=== PATIENT | female | born 1950 | race Caucasian/White ===

== ENCOUNTER 2018-02-28 14:39 | Emergency (ER) | payer MEDICARE, MEDICAID ==
--- NOTE | 2018-02-28 14:57 | ER Report ---
History and Physical Time Seen By MD: 14:54 HPI/ROS CHIEF COMPLAINT: Problem with wounds on foot HISTORY OF PRESENT ILLNESS: This is a 67-year-old female who presents to the emergency department with her son for chronic wounds to her foot. Patient has been in [place] for the past 3 months, visiting from [place], has a video presentation operator that she sees routinely in [place]. She has been receiving home health 5 days week as well as wound care treatment at home 3 days week for a nonhealing wound on her right 4th and 5th toes. The patient was evaluated by the wound care personnel today, they noted some increased erythema and became concerned and s ubsequently sent her to the ER for further evaluation. Patient arrives very agitated, has made it very clear that she does not want to be in the emergency department however her son who is with her home health personnel also state that there's been an increased odor to the right foot. Patient has a long history of poor circulation, lymphedema, diabetes, club feet and chronic nonhealing wounds. Patient is ambulatory. Patient denies fevers or chills, no chest pain or shortness of breath, no nausea or vomiting. REVIEW OF SYSTEMS: Constitutional: No fever, no chills. Eyes: No discharge. ENT: No sore throat. Cardiovascular: No chest pain, no palpitations. Respiratory: No cough, no shortness of breath. Gastrointestinal: No abdominal pain, no vomiting. Genitourinary: No hematuria. Musculoskeletal: No back pain. Skin: As above. Neurological: No headache. Allergies: Coded Allergies: Penicillins (Verified Adverse Reaction, Unknown, HIVES, 02/28/18) Home Meds Active Scripts Doxycycline Hyclate (DOXYCYCLINE HYCLATE) 100 Mg Tablet, 100 MG PO BID for 10 Days, #20 TAB 0 Refills Prov:YELENA BARRETT Nila TRAINING CONSULTANT-BC 02/28/18 Reported Medications Diphenhydramine Hcl (BENADRYL) 25 Mg Capsule, 25 MG PO Q6-8H PRN for ITCHING, CAPSULE 02/28/18 Ammonium Lactate/Emu Oil (EMU-LAC HYDRATING CREAM) 120 Ml Cream.ml., 120 ML TP QDAY PRN for RASH 02/28/18 Docusate Sodium (COLACE) 100 Mg Capsule, 100 MG PO BID PRN for CONSTIPATION, CAPSULE 02/28/18 Cyanocobalamin (Vitamin B-12) (Vitamin B-12) 1,000 Mcg Capsule, Q30D 02/28/18 Cholecalciferol (Vitamin D3) (VITAMIN D3) 1,000 Unit Tablet, 5000 UNIT PO QDAY, TAB 02/28/18 Multivitamin With Minerals (MULTIPLE VITAMIN) 1 Each Tablet, 1 EACH PO QDAY, TAB 02/28/18 Ondansetron Hcl (ONDANSETRON HCL) 4 Mg Tablet, 4 MG PO PRN 02/28/18 Sumatriptan Succinate (SUMATRIPTAN SUCCINATE) 25 Mg Tablet, 25 MG PO PRN 02/28/18 Diclofenac Sodium 1% Gel (VOLTAREN 1% GEL) 100 Gm Gel..gram., TOP PRN 02/28/18 Triamcinolone Acetonide 0.1% Oint 15 Gm Tube (TRIAMCINOLONE ACETONIDE 0.1% 15 GM TUBE) 15 Gm Oint...g., TOP PRN 02/28/18 Miconazole Nitrate (MICRO-GUARD) 85 Gm Powder, TOP PRN 02/28/18 Fluticasone Prop 50 Mcg Ns (FLONASE 50 MCG NS) 16 Gm [place].susp, 2 SPR INH BID 02/28/18 Ferrous Sulfate (FEOSOL) 325 Mg Tablet, 325 MG PO QDAY 02/28/18 Escitalopram Oxalate (ESCITALOPRAM OXALATE) 10 Mg Tablet, 15 MG PO HS 02/28/18 Trazodone Hcl (TRAZODONE HCL) 50 Mg Tablet, 50 MG PO HS 02/28/18 Magnesium Oxide (MAG-OXIDE) 400 Mg Tablet, 400 MG PO QDAY 02/28/18 Topiramate (TOPIRAMATE) 200 Mg Tablet, 200 MG PO HS 02/28/18 Spironolactone (SPIRONOLACTONE) 50 Mg Tablet, 50 MG PO BID 02/28/18 Atenolol (ATENOLOL) 25 Mg Tablet, 25 MG PO HS 02/28/18 Famotidine (FAMOTIDINE) 20 Mg Tablet, 20 MG PO QDAY 02/28/18 Morphine Sulfate (MORPHINE SULFATE ER) 60 Mg Tablet.er, 75 PO BID for PAIN 02/28/18 Risperidone (RISPERIDONE) 0.5 Mg Tablet, 0.5 MG PO QDAY 02/28/18 Metformin Hcl (METFORMIN HCL) 500 Mg Tablet, 1 TAB PO BID, TAB 02/28/18 Furosemide (LASIX) 40 Mg Tablet, 1 TAB PO QDAY, TAB 02/28/18 Potassium Chloride (POTASSIUM CHLORIDE) 20 Meq Tab.er.prt, 20 MEQ PO QDAY 02/28/18 Levothyroxine Sodium (LEVOTHYROXINE SODIUM) 50 Mcg Tablet, 50 MCG PO QDAY, TAB 02/28/18 Levothyroxine Sodium (LEVOTHYROXINE SODIUM) 100 Mcg Tablet, 100 MCG PO QDAY, TAB 02/28/18 Oxycodone Hcl 10 Mg Tab (OXYCODONE HCL 10 MG TAB) 10 Mg Tablet, 10 MG PO Q6H PRN for PAIN, TAB 02/28/18 Past Medical/Surgical History The patient has a past medical and surgical history of migraines, has a pacemaker for low heart rate, A. fib, hypertension, gastric bypass, urinary frequency, arthritis, chronic back pain, chronic foot pain, depression, anxiety, facial and lip cancer, chemotherapy, diabetes, appendectomy, cholecystectomy, bilateral total knees, total right hip.. Reviewed Nurses Notes: Yes Constitutional Vital Sign - Last 24 Hours 02/28/18 02/28/18 02/28/18 02/28/18 14:51 14:54 15:09 15:30 Temp 98.1 Pulse 83 75 Resp 16 B/P (MAP) 132/81 (98) 132/81 127/75 (92) Pulse Ox 88 93 O2 Delivery Room Air Room Air 02/28/18 02/28/18 02/28/18 02/28/18 15:39 16:00 16:09 17:00 Pulse 74 80 B/P (MAP) 117/85 (96) 107/77 (87) Pulse Ox 88 92 O2 Delivery Room Air Room Air 02/28/18 02/28/18 17:14 17:30 Pulse 76 B/P (MAP) 104/74 (84) Pulse Ox 95 93 O2 Delivery Room Air Room Air Physical Exam General Appearance: The patient is alert, has no immediate need for airway protection and no signs of toxicity. Eyes: Pupils equal and round no pallor or injection. ENT, Mouth: Mucous membranes are dry. Respiratory: There are no retractions, lungs are clear to auscultation. Cardiovascular: Regular rate and rhythm, distant, no murmurs, clicks or rubs. Gastrointestinal: Abdomen is soft and non tender, no masses, bowel sounds normal. Neurological: Alert and oriented 4. Moving all extremities. Following all commands. No focal neuro deficits. Skin: Ulceration to the medial side of the right small toe, that is down to the bone. There is erythema and the beginning of cellulitis to the surrounding tissue. There is no apparent granulation tissue to the wound. No cellulitic appearing wounds to the left foot. Musculoskeletal: Neck is supple non tender. Extremities are nontender, nonswollen and have full range of motion. DIFFERENTIAL DIAGNOSIS: After history and physical exam differential diagnosis was considered for osteomyelitis, cellulitis, chronic wound, poor wound healing, and peripheral vascular disease. Medical Decision Making Data Points Result Diagram: 02/28/18 1649 Laboratory Hematology Test 02/28/18 16:49 Red Blood Count 4.54 M/uL (4.17-5.56) Mean Corpuscular Volume 90.3 fL (80.0-96.0) Mean Corpuscular Hemoglobin 30.8 pg (26.0-33.0) Mean Corpuscular Hemoglobin Concent 34.1 g/dL (32.0-36.0) Red Cell Distribution Width 14.3 % (11.5-14.5) Mean Platelet Volume 8.1 fL (7.2-11.1) Neutrophils (%) (Auto) 65.1 % (39.4-72.5) Lymphocytes (%) (Auto) 23.4 % (17.6-49.6) Monocytes (%) (Auto) 9.6 % (4.1-12.4) Eosinophils (%) (Auto) 1.2 % (0.4-6.7) Basophils (%) (Auto) 0.7 % (0.3-1.4) Nucleated RBC Relative Count (auto) 0.1 /100WBC Neutrophils # (Auto) 3.5 K/uL (2.0-7.4) Lymphocytes # (Auto) 1.3 K/uL (1.3-3.6) Monocytes # (Auto) 0.5 K/uL (0.3-1.0) Eosinophils # (Auto) 0.1 K/uL (0.0-0.5) Basophils # (Auto) 0.0 K/uL (0.0-0.1) Nucleated RBC Absolute Count (auto) 0.01 K/uL C-Reactive Protein < 0.5 mg/dl (<1.0) Chemistry Test 02/28/18 16:49 White Blood Count 5.4 k/uL (4.5-11.0) Red Blood Count 4.54 M/uL (4.17-5.56) Hemoglobin 14.0 g/dL (12.0-16.0) Hematocrit 41.0 % (34.0-47.0) Mean Corpuscular Volume 90.3 fL (80.0-96.0) Mean Corpuscular Hemoglobin 30.8 pg (26.0-33.0) Mean Corpuscular Hemoglobin Concent 34.1 g/dL (32.0-36.0) Red Cell Distribution Width 14.3 % (11.5-14.5) Platelet Count 200 K/uL (150-450) Mean Platelet Volume 8.1 fL (7.2-11.1) Neutrophils (%) (Auto) 65.1 % (39.4-72.5) Lymphocytes (%) (Auto) 23.4 % (17.6-49.6) Monocytes (%) (Auto) 9.6 % (4.1-12.4) Eosinophils (%) (Auto) 1.2 % (0.4-6.7) Basophils (%) (Auto) 0.7 % (0.3-1.4) Nucleated RBC Relative Count (auto) 0.1 /100WBC Neutrophils # (Auto) 3.5 K/uL (2.0-7.4) Lymphocytes # (Auto) 1.3 K/uL (1.3-3.6) Monocytes # (Auto) 0.5 K/uL (0.3-1.0) Eosinophils # (Auto) 0.1 K/uL (0.0-0.5) Basophils # (Auto) 0.0 K/uL (0.0-0.1) Nucleated RBC Absolute Count (auto) 0.01 K/uL C-Reactive Protein < 0.5 mg/dl (<1.0) EKG/Imaging Imaging EXAMINATION: Right foot radiographs 3 views HISTORY: Chronic wounds, evaluate for bony involvement COMPARISON: None. FINDINGS: Frontal, oblique and lateral views obtained. Bones: Osteopenia. Chronic second through fourth metatarsal fracture deformities. Equivocal chronic distal fifth metatarsal fracture deformity. No definitive osseous destruction. Evaluation of the distal aspects of the second through fifth digits is limited secondary to flexion of these toes. Joint spaces: Normal. Alignment: Normal. Soft tissues: Dorsal soft tissue swelling. Vascular calcifications. IMPRESSION: No definitive radiographic evidence of osteomyelitis. Consider MR if there is high clinical concern for osteomyelitis. Evaluation of the distal aspects of the second through fifth toes is limited by toe flexion. Dorsal soft tissue swelling. Osteopenia. Chronic second through fourth metatarsal fracture deformities. Report Dictated By: Antwon Barragan MD at 02/28/2018 3:39 PM Report E-Signed By: Antwon Barragan MD at 02/28/2018 3:43 PM [id number] ED Course/Re-evaluation ED Course The patient was admitted to a room. A history of were obtained. Differential diagnoses were considered. I did have wound care come down to evaluate the patient's wound on the right small toe, they felt the wound is down to bone and suggested following up with the general surgeon. I did speak with Dr. Lopez as noted below, she did alto only come down and evaluate the patient. A CBC and CRP were obtained, labs studies unremarkable. I also spoke with the patient's video presentation operator in [place] as noted below. The patient will be discharged from the emergency department tonight on doxycycline with instructions to keep her appointment with the wound care nurse this Monday, call the video presentation operator tomorrow and schedule a follow-up appointment as soon as possible. The patient's wounds were dressed this evening, her compression stockings and multiple layers of compression devices were reapplied. An x-ray of the foot did not suggest osteomyelitis at this time. The patient's and her son had no other questions or concerns at this time and were discharged home. The patient was also instructed to return to the ER for any other concerns, increased pain or worsening symptoms of cellulitis. 02/28/2018 4:00:49 pm I did speak with Dr. Lopez the surgeon safety and occupational health manager regarding the patient's case, she did come down and evaluate the patient's wound, her initial suggestion was to follow-up with podiatry, here locally if possible. Patient does have a video presentation operator insured and that she's been working with. She did not feel that the wound needed to be debris did or amputated at this time. 02/28/2018 4:22:47 pm I did speak with the patient's video presentation operator in [place], Dr. Leonardo, he is very familiar with the patient's past medical history, he said that he would be willing to see her in his office if she were to call and make a follow-up appointment within the next 1-2 weeks. I did discuss this with the patient. She and her son will try to make arrangements to follow-up with her video presentation operator in [place]. Decision to Disposition Date: Feb 28, 2018 Decision to Disposition Time: 17:12 Depart Departure Latest Vital Signs Vital Signs Date Time Temp Pulse Resp B/P (MAP) Pulse Ox O2 Delivery O2 Flow Rate FiO2 02/28/18 17:30 104/74 (84) 93 Room Air 02/28/18 17:14 76 02/28/18 14:54 98.1 16 Impression: Primary Impression: CELLULITIS OF RIGHT TOE Additional Impressions: Diabetes Chronic wound of extremity Condition: Improved Disposition: HOME OR SELF-CARE New Scripts Doxycycline Hyclate (DOXYCYCLINE HYCLATE) 100 Mg Tablet 100 MG PO BID for 10 Days, #20 TAB 0 Refills Prov: YELENA BARRETT-BC 02/28/18 Patient Instructions: Cellulitis (ED), Chronic Wound Care (ED) Additional Instructions: Please call your Window Glazier Helper, Dr. Leonardo, tomorrow to arrange follow up as soon as possible, preferably within one week. We have evaluated your wound today and it does appear that there is some bone exposed with some surrounding inflammation and the beginning of a skin infection. I am starting you on Doxycycline, please complete the antibiotics. Keep your home health wound care appointment monday. Drink plenty of water. Get plenty of rest. Continue taking your regular medications. Return to the ED for any other needs or worsening symptoms. Problem Qualifiers Additional Impressions: Diabetes Diabetes mellitus type: type 2 Diabetes mellitus exterminator helper insulin use: without exterminator helper use Diabetes mellitus complication status: with circulatory complication Diabetes mellitus complication detail: with other circulatory complications Qualified Codes: E11.59 - Type 2 diabetes mellitus with other circulatory complications YELENA BARRETT TRAINING CONSULTANT-BC Feb 28, 2018 14:57
--- NOTE | 2018-02-28 15:47 | RADIOLOGY IMAGING REPORT ---
FACILITY: [facility] PATIENT NAME: Makenzie Fox : 1950 MR: [id number] V: [id number] EXAM DATE: ORDERING PHYSICIAN: YELENA BARRETT TECHNOLOGIST: Location: [facility] [place] Patient: Makenzie Fox : 1950 Visit/Account:[id number] Date of Sevice: 02/28/2018 EXAMINATION: Right foot radiographs 3 views HISTORY: Chronic wounds, evaluate for bony involvement COMPARISON: None. FINDINGS: Frontal, oblique and lateral views obtained. Bones: Osteopenia. Chronic second through fourth metatarsal fracture deformities. Equivocal chroni c distal fifth metatarsal fracture deformity. No definitive osseous destruction. Evaluation of the distal aspects of the second through fifth digits is limited secondary to flexion of these toes. Joint spaces: Normal. Alignment: Normal. Soft tissues: Dorsal soft tissue swelling. Vascular calcifications. IMPRESSION: No definitive radiographic evidence of osteomyelitis. Consider MR if there is high clinical concern for osteomyelitis. Evaluation of the distal aspects of the second through fifth toes is limited by toe flexion. Dorsal soft tissue swelling. Osteopenia. Chronic second through fourth metatarsal fracture deformities. Report Dictated By: Antwon Barragan MD at 02/28/2018 3:39 PM Report E-Signed By: Antwon Barragan MD at 02/28/2018 3:43 PM [id number]
[2018-02-28] MEDS ORDERED: [UNRECOGNIZED DRUG - CODE] TOP (15:49)
[2018-02-28] MEDS ORDERED: OXYC10TA67 PO (15:49)
[2018-02-28] MEDS ORDERED: TRIA15OI20 TOP (15:49)
[2018-02-28] MEDS ORDERED: METF-411 PO (15:49)
[2018-02-28] MEDS ORDERED: DICL100G39 TOP (15:49)
[2018-02-28] MEDS ORDERED: FURO40TA35 PO (15:49)
[2018-02-28] MEDS ORDERED: FERR325T5 PO (15:49)
[2018-02-28] MEDS ORDERED: ESCI10TA8 PO (15:49)
[2018-02-28] MEDS ORDERED: LEVO50TA86 PO (15:49)
[2018-02-28] MEDS ORDERED: TOPI200T61 PO (15:49)
[2018-02-28] MEDS ORDERED: TRAZ50TA34 PO (15:49)
[2018-02-28] MEDS ORDERED: ATEN-65 PO (15:49)
[2018-02-28] MEDS ORDERED: SPIR50TA33 PO (15:49)
[2018-02-28] MEDS ORDERED: MORP60TA50 PO (15:49)
[2018-02-28] MEDS ORDERED: MAGN400T4 PO (15:49)
[2018-02-28] MEDS ORDERED: POTA20TA94 PO (15:49)
[2018-02-28] MEDS ORDERED: RISP0.5T59 PO (15:49)
[2018-02-28] MEDS ORDERED: SUMA25TA27 PO (15:49)
[2018-02-28] MEDS ORDERED: FAMO-67 PO (15:49)
[2018-02-28] MEDS ORDERED: LEVO-3 PO (15:49)
[2018-02-28] MEDS ORDERED: ONDA-2 PO (15:49)
[2018-02-28] MEDS ORDERED: FLUT16SP19 INH (15:49)
[2018-02-28] MEDS ORDERED: MULT-1335 PO (16:02)
[2018-02-28] MEDS ORDERED: CHOL10005 PO (16:05)
[2018-02-28] MEDS ORDERED: DOCU-416 PO (16:05)
[2018-02-28] MEDS ORDERED: CYAN100058 (16:05)
[2018-02-28] MEDS ORDERED: AMMO120C2 TP (16:10)
[2018-02-28] MEDS ORDERED: DIPH-740 PO (16:10)
[2018-02-28 16:55] LABS: PLATELET COUNT, AUTOMATED 200 K/uL (150-450)
[2018-02-28] MEDS ORDERED: DOXY-179 PO (17:18)
[2018-02-28 17:30] VITALS: BP 104/74
--- NOTE | 2018-02-28 17:32 | General Surgery Consultation ---
History of Present Illness Requesting Physician Yelena Farr NP Reason for Consult right toe ulcer Chief Complaint right toe pain History of Present Illness 67 yo female with T2DM with chronic LE lymphedema and chronic wounds on her feet, followed by Podiatry in [place]. Denies FCS. No records available at this time. History Home Meds Active Scripts Doxycycline Hyclate (DOXYCYCLINE HYCLATE) 100 Mg Tablet, 100 MG PO BID for 10 Days, #20 TAB 0 Refills Prov:YELENA FARR GRIPS-BC 02/28/18 Reported Medications Diphenhydramine Hcl (BENADRYL) 25 Mg Capsule, 25 MG PO Q6-8H PRN for ITCHING, CAPSULE 02/28/18 Ammonium Lactate/Emu Oil (EMU-LAC HYDRATING CREAM) 120 Ml Cream.ml., 120 ML TP QDAY PRN for RASH 02/28/18 Docusate Sodium (COLACE) 100 Mg Capsule, 100 MG PO BID PRN for CONSTIPATION, CAPSULE 02/28/18 Cyanocobalamin (Vitamin B-12) (Vitamin B-12) 1,000 Mcg Capsule, Q30D 02/28/18 Cholecalciferol (Vitamin D3) (VITAMIN D3) 1,000 Unit Tablet, 5000 UNIT PO QDAY, TAB 02/28/18 Multivitamin With Minerals (MULTIPLE VITAMIN) 1 Each Tablet, 1 EACH PO QDAY, TAB 02/28/18 Ondansetron Hcl (ONDANSETRON HCL) 4 Mg Tablet, 4 MG PO PRN 02/28/18 Sumatriptan Succinate (SUMATRIPTAN SUCCINATE) 25 Mg Tablet, 25 MG PO PRN 02/28/18 Diclofenac Sodium 1% Gel (VOLTAREN 1% GEL) 100 Gm Gel..gram., TOP PRN 02/28/18 Triamcinolone Acetonide 0.1% Oint 15 Gm Tube (TRIAMCINOLONE ACETONIDE 0.1% 15 GM TUBE) 15 Gm Oint...g., TOP PRN 02/28/18 Miconazole Nitrate (MICRO-GUARD) 85 Gm Powder, TOP PRN 02/28/18 Fluticasone Prop 50 Mcg Ns (FLONASE 50 MCG NS) 16 Gm [place].susp, 2 SPR INH BID 02/28/18 Ferrous Sulfate (FEOSOL) 325 Mg Tablet, 325 MG PO QDAY 02/28/18 Escitalopram Oxalate (ESCITALOPRAM OXALATE) 10 Mg Tablet, 15 MG PO HS 02/28/18 Trazodone Hcl (TRAZODONE HCL) 50 Mg Tablet, 50 MG PO HS 02/28/18 Magnesium Oxide (MAG-OXIDE) 400 Mg Tablet, 400 MG PO QDAY 02/28/18 Topiramate (TOPIRAMATE) 200 Mg Tablet, 200 MG PO HS 02/28/18 Spironolactone (SPIRONOLACTONE) 50 Mg Tablet, 50 MG PO BID 02/28/18 Atenolol (ATENOLOL) 25 Mg Tablet, 25 MG PO HS 02/28/18 Famotidine (FAMOTIDINE) 20 Mg Tablet, 20 MG PO QDAY 02/28/18 Morphine Sulfate (MORPHINE SULFATE ER) 60 Mg Tablet.er, 75 PO BID for PAIN 02/28/18 Risperidone (RISPERIDONE) 0.5 Mg Tablet, 0.5 MG PO QDAY 02/28/18 Metformin Hcl (METFORMIN HCL) 500 Mg Tablet, 1 TAB PO BID, TAB 02/28/18 Furosemide (LASIX) 40 Mg Tablet, 1 TAB PO QDAY, TAB 02/28/18 Potassium Chloride (POTASSIUM CHLORIDE) 20 Meq Tab.er.prt, 20 MEQ PO QDAY 02/28/18 Levothyroxine Sodium (LEVOTHYROXINE SODIUM) 50 Mcg Tablet, 50 MCG PO QDAY, TAB 02/28/18 Levothyroxine Sodium (LEVOTHYROXINE SODIUM) 100 Mcg Tablet, 100 MCG PO QDAY, TAB 02/28/18 Oxycodone Hcl 10 Mg Tab (OXYCODONE HCL 10 MG TAB) 10 Mg Tablet, 10 MG PO Q6H PRN for PAIN, TAB 02/28/18 Allergies: Coded Allergies: Penicillins (Verified Adverse Reaction, Unknown, HIVES, 02/28/18) Review of Systems All Systems Reviewed/Normal: Yes, Except as Noted Exam Vital Signs Vital Signs Date Time Temp Pulse Resp B/P (MAP) Pulse Ox O2 Delivery O2 Flow Rate FiO2 02/28/18 16:09 80 92 Room Air 02/28/18 16:00 117/85 (96) 02/28/18 14:54 98.1 16 General Appearance: Alert, Awake, No Acute Distress, Afebrile Neuro: No Gross deficits Musculoskeletal: Other (+4 LE edema) Extremities: Pulses, Edema Integumentary: Generalized Fragile Skin, Other (small ulcer medial right 5th toe with chronic exudate and palpable bone deep with minimal erythema) Psych: Alert & Oriented X3, Appropriate Mood & Affect Medical Decision Making Data Points Result Diagram: 02/28/18 7811 Assessment and Plan Problems: (1) Chronic wound of extremity Status: Chronic Assessment & Plan: Cont local wound care. Pt needs to establish with Podiatry and see them on a regular basis. She needs protective footwear. Pt refusing debridement and any other operative intervention at this point. Time Spent: > 30 min Venous Thromboembolism VTE Risk Physician Assess for VTE Risk: Yes Patient's VTE Risk: High VTE Diagnostic Test 2 Days Prior to Admit: No Antithrombotics Is Pt On Any Antithrombotics?: No Prophylaxis Tx Contraindicated Mechanical Contraindications: Pt/Family Refused MAKEDA DE JESUS MD Feb 28, 2018 17:32
== END 2018-02-28 17:52 | disposition home or self-care (01) ==
LOC: ER 14:49
DX: L03.031 Cellulitis of right toe (principal); E11.59 Type 2 diabetes mellitus with other circulatory complications
CPT/HCPCS: 36415; 85025; 86140; 97161; 99283

== ENCOUNTER 2018-03-02 15:39 | Inpatient (IN) | payer MEDICARE, MEDICAID ==
[~2018-03-02] VITALS: Ht 144.8 cm; Wt 78.2 kg
[~2018-03-02 15:39] MED LIST: AMMO120C2 TP; ATEN-65 PO; CHOL10005 PO; CYAN100058; DICL100G39 TOP; DIPH-740 PO; DOCU-416 PO; DOXY-179 PO; ESCI10TA8 PO; FAMO-67 PO; FERR325T5 PO; FLUT16SP19 INH; FURO40TA35 PO; LEVO-3 PO; LEVO50TA86 PO; MAGN400T4 PO; METF-450 PO; MORP60TA50 PO; MULT-1335 PO; ONDA-2 PO; OXYC10TA67 PO; POTA20TA94 PO; RISP0.5T59 PO; SPIR50TA33 PO; SUMA25TA27 PO; TOPI200T61 PO; TRAZ50TA34 PO; TRIA15OI20 TOP; [UNRECOGNIZED DRUG - CODE] TOP
--- NOTE | 2018-03-02 15:46 | ER Report ---
History and Physical Time Seen By MD: 15:47 (SHANEL IVEY MD) HPI/ROS This is a 67-year-old female with a history of gastric bypass performed in 2000. Also with a history of an appendectomy, cholecystectomy, and a residual ventral hernia. Also with multiple medical problems. She presents to the emergency department with acute onset of nausea vomiting and mid epigastric pain that started at 0400 today. She had a normal bowel movement yesterday, and has been passing gas today. She denies fever or chills. No chest pain or shortness of breath. Her son, who is her caregiver and is at the bedside, states that he has been unable to even move her from seated to standing position without her vomiting. She denies any dysuria. Remainder of the 14 system rev: Yes (SHANEL IVEY MD) Allergies: Coded Allergies: Penicillins (Verified Adverse Reaction, Unknown, HIVES, 02/28/18) Home Meds Active Scripts Doxycycline Hyclate (DOXYCYCLINE HYCLATE) 100 Mg Tablet, 100 MG PO BID for 10 Days, #20 TAB 0 Refills Prov:YELENA BARRETT STATISTICAL DEVELOPER-BC 02/28/18 Reported Medications Cyanocobalamin (Vitamin B-12) (CYANOCOBALAMIN INJECTION) 1,000 Mcg/1 Ml Vial, 1000 MCG IM monthly, VIAL 03/03/18 Loratadine (LORATADINE) 10 Mg Tablet, 10 MG PO Q HS 03/03/18 Cholecalciferol (Vitamin D3) (VITAMIN D3) 5,000 Unit Tablet, 5000 UNIT PO Q noon 03/03/18 Levothyroxine Sodium (LEVOTHYROXINE SODIUM) 150 Mcg Tablet, 150 MCG PO QDAY 03/03/18 Diphenhydramine Hcl (BENADRYL) 25 Mg Capsule, 25 MG PO Q6-8H PRN for ITCHING, CAPSULE 02/28/18 Ammonium Lactate/Emu Oil (EMU-LAC HYDRATING CREAM) 120 Ml Cream.ml., 120 ML TP QDAY PRN for RASH 02/28/18 Docusate Sodium (COLACE) 100 Mg Capsule, 100 MG PO BID PRN for CONSTIPATION, CAPSULE 02/28/18 Multivitamin With Minerals (MULTIPLE VITAMIN) 1 Each Tablet, 1 EACH PO QDAY, TAB 02/28/18 Ondansetron Hcl (ONDANSETRON HCL) 4 Mg Tablet, 4 MG PO Q6H PRN for NAUSEA 02/28/18 Sumatriptan Succinate (SUMATRIPTAN SUCCINATE) 25 Mg Tablet, 25 MG PO BID PRN for migraine 02/28/18 Diclofenac Sodium 1% Gel (VOLTAREN 1% GEL) 100 Gm Gel..gram., TOP PRN 4 g per side up to 4x/day = 32g 02/28/18 Triamcinolone Acetonide 0.1% Oint 15 Gm Tube (TRIAMCINOLONE ACETONIDE 0.1% 15 GM TUBE) 15 Gm Oint...g., TOP PRN 02/28/18 Miconazole Nitrate (MICRO-GUARD) 85 Gm Powder, TOP TID PRN for anti fungal 02/28/18 Fluticasone Prop 50 Mcg Ns (FLONASE 50 MCG NS) 16 Gm [place].susp, 2 SPR INH QHS 02/28/18 Ferrous Sulfate (FEOSOL) 325 Mg Tablet, 325 MG PO Qnoon 02/28/18 Escitalopram Oxalate (ESCITALOPRAM OXALATE) 10 Mg Tablet, 15 MG PO HS 02/28/18 Trazodone Hcl (TRAZODONE HCL) 50 Mg Tablet, 50 MG PO HS 02/28/18 Magnesium Oxide (MAG-OXIDE) 400 Mg Tablet, 400 MG PO Q noon 02/28/18 Topiramate (TOPIRAMATE) 200 Mg Tablet, 200 MG PO HS 02/28/18 Spironolactone (SPIRONOLACTONE) 50 Mg Tablet, 50 MG PO BID 02/28/18 Atenolol (ATENOLOL) 25 Mg Tablet, 25 MG PO HS 02/28/18 Famotidine (FAMOTIDINE) 20 Mg Tablet, 20 MG PO QHS 02/28/18 Morphine Sulfate (MORPHINE SULFATE ER) 60 Mg Tablet.er, 60 PO BID for PAIN 02/28/18 Metformin Hcl (METFORMIN HCL) 500 Mg Tablet, 1 TAB PO BID, TAB 02/28/18 Furosemide (LASIX) 40 Mg Tablet, 1 TAB PO QDAY, TAB 02/28/18 Potassium Chloride (POTASSIUM CHLORIDE) 20 Meq Tab.er.prt, 20 MEQ PO QDAY 02/28/18 Oxycodone Hcl 10 Mg Tab (OXYCODONE HCL 10 MG TAB) 10 Mg Tablet, 10 MG PO Q6H PRN for PAIN, TAB 02/28/18 Discontinued Reported Medications Cyanocobalamin (Vitamin B-12) (Vitamin B-12) 1,000 Mcg Capsule, Q30D 02/28/18 Cholecalciferol (Vitamin D3) (VITAMIN D3) 1,000 Unit Tablet, 5000 UNIT PO QDAY, TAB 02/28/18 Risperidone (RISPERIDONE) 0.5 Mg Tablet, 0.5 MG PO QDAY 02/28/18 Levothyroxine Sodium (LEVOTHYROXINE SODIUM) 50 Mcg Tablet, 50 MCG PO QDAY, TAB 02/28/18 Levothyroxine Sodium (LEVOTHYROXINE SODIUM) 100 Mcg Tablet, 100 MCG PO QDAY, TAB 02/28/18 Reviewed Nurses Notes: Yes Old Medical Records Reviewed: Yes (SHANEL IVEY MD) Hx Smoking: No Hx Substance Use Disorder: No Hx Alcohol Use: No (SHANEL IVEY MD) Constitutional Vital Sign - Last 24 Hours 03/02/18 03/02/18 03/02/18 03/02/18 15:53 15:53 15:54 16:00 Temp 99.6 Pulse 80 89 Resp 10 12 B/P (MAP) 138/90 138/90 (106) 149/90 (109) Pulse Ox 92 90 O2 Delivery Room Air 03/02/18 03/02/18 03/02/18 03/02/18 16:09 16:24 16:30 16:39 Pulse 91 93 87 Resp 9 10 8 B/P (MAP) ???/??? (1755) Pulse Ox 96 95 93 03/02/18 03/02/18 03/02/18 03/02/18 16:54 17:00 17:09 17:24 Pulse 85 84 88 Resp 10 16 9 B/P (MAP) 153/106 (122) Pulse Ox 97 89 93 03/02/18 03/02/18 03/02/18 03/02/18 17:30 17:35 17:50 18:00 Pulse 92 89 Resp 10 10 B/P (MAP) 143/78 (99) 133/96 (108) Pulse Ox 97 03/02/18 03/02/18 03/02/18 03/02/18 18:05 18:20 18:50 19:00 Pulse 90 91 98 Resp 16 14 9 B/P (MAP) 151/105 (120) Pulse Ox 95 97 96 03/02/18 03/02/18 03/02/18 03/02/18 19:05 19:20 19:30 19:35 Pulse 99 101 89 Resp 13 20 15 B/P (MAP) 135/93 (107) Pulse Ox 96 94 96 03/02/18 03/02/18 03/02/18 03/02/18 19:50 20:00 20:05 20:20 Pulse 93 85 83 Resp 14 16 12 B/P (MAP) 114/83 (93) Pulse Ox 95 96 96 03/02/18 03/02/18 03/02/18 03/02/18 20:30 20:35 21:00 21:05 Pulse 80 84 Resp 15 10 B/P (MAP) 120/90 (100) 129/89 (102) Pulse Ox 96 97 03/02/18 03/02/18 21:30 21:35 Pulse 82 Resp 23 B/P (MAP) 131/90 (104) Pulse Ox 96 (ISABEL YOUNG DO) Physical Exam General Appearance: The patient is alert, has no immediate need for airway protection and no current signs of toxicity. Eyes: Pupils equal and round no injection. Respiratory: Chest is non tender, lungs are clear to auscultation. Cardiac: regular rate and rhythm Gastrointestinal: Abdomen is soft. There is tenderness to palpation at the mid epigastric region. There is a large ventral hernia. Extremities have full range of motion and are non tender. Skin: No rashes or lesions. DIFFERENTIAL DIAGNOSIS: After history and physical exam differential diagnosis was considered for abdominal pain including but not limited to appendicitis, cholecystitis, gastritis and urinary tract infection. (SHANEL IVEY MD) Medical Decision Making Data Points Result Diagram: 03/04/18 0518 03/04/18 1758 Laboratory Hematology Test 03/02/18 16:30 Total Bilirubin 0.8 mg/dl (0.2-1.3) Aspartate Amino Transf (AST/SGOT) 21 U/L (0-35) Alanine Aminotransferase (ALT/SGPT) 28 U/L (0-56) Alkaline Phosphatase 90 U/L (0-126) Total Protein 6.8 g/dl (6.3-8.2) Albumin 4.2 g/dl (3.5-5.0) Lipase 89 U/L (23-300) Chemistry Test 03/02/18 16:30 Total Bilirubin 0.8 mg/dl (0.2-1.3) Aspartate Amino Transf (AST/SGOT) 21 U/L (0-35) Alanine Aminotransferase (ALT/SGPT) 28 U/L (0-56) Alkaline Phosphatase 90 U/L (0-126) Total Protein 6.8 g/dl (6.3-8.2) Albumin 4.2 g/dl (3.5-5.0) Lipase 89 U/L (23-300) (ISABEL YOUNG DO) EKG/Imaging Imaging Results: CT scan of the abdomen and pelvis with IV contrast was obtained. The results of the study are EXAMINATION: CT abdomen and pelvis with IV contrast HISTORY: Abdominal pain. Nausea and vomiting. S/P gastric bypass. TECHNIQUE: Axial CT images of the abdomen and pelvis were obtained with IV contrast, with coronal and sagittal 2D reconstructed images. One of the following dose optimization techniques was utilized in the performance of this exam: Automated exposure control; adjustment of the mA and/or kV according to the patient's size; or use of an iterative reconstruction technique. Specific details can be referenced in the facility's radiology CT exam operational policy. Contrast: 75 mL of IV Isovue-370. The patient declined oral contrast. COMPARISON: None. FINDINGS: Liver: Negative. Gallbladder and bile ducts: Cholecystectomy. Dilatation the central bile ducts may relate to the postcholecystectomy state. Spleen: Negative. Pancreas: Negative. Adrenal glands: Negative. Kidneys: Small nonobstructing right renal calculi. No hydronephrosis. The kidneys enhance normally. Bowel and peritoneum: Surgical changes of gastric bypass. There is a small bow el obstruction related to a large right inguinal hernia. The distal aspect of the Joseph limb is located in the hernia sac, with marked dilatation of the upstream Joseph limb and gastric pouch. The distal aspect of the pancreaticobiliary limb is also located within the hernia sac. The jejunojejunostomy extends partially into the hernia sac. There is marked dilatation of the Joseph limb within the hernia sac with wall thickening and mesenteric edema, along with a small amount of free fluid in the hernia sac. The inferior aspect of the hernia sac is incompletely imaged. CT appearance is suspicious for an incarcerated hernia. Bowel wall thickening within the hernia sac may indicate venous congestion or early ischemic change. Distal intra- abdominal small bowel loops are decompressed. Small volume of stool throughout the colon. Scattered colonic diverticulosis, without evidence of diverticulitis. No free intraperitoneal air. Pelvic structures: Negative. Lymph node assessment: Negative. Vessels: Mild vascular calcifications. Normal caliber abdominal aorta. Musculoskeletal: Thoracolumbar scoliosis, with advanced multilevel degenerative changes throughout the spine. No acute osseous findings. Left hip arthroplasty. Body wall: Large right inguinal hernia as above. Abdominal wall structures otherwise appear intact. Lung bases: Negative. IMPRESSION: 1. Small bowel obstruction related to a large right inguinal hernia. The patient has undergone prior gastric bypass. The hernia sac contains the distal Joseph limb and distal pancreaticobiliary limb, as well as a portion of the j ejunojejunostomy. The upstream Joseph limb is markedly distended. 2. There is wall thickening of small bowel segments in the hernia sac with mesenteric edema and a small amount of free fluid in the hernia sac. CT appearance is suspicious for incarceration. Bowel wall thickening may represent venous congestion or early ischemic change. Recommend surgical consultation. 3. No other acute intra-abdominal findings. The study was read by the radiologist. I viewed the images myself on the PACS system. (ISABEL YOUNG DO) ED Course/Re-evaluation Clinical Indication for ER IV: Hydration, IV Access ED Course Care assumed at shift change with diagnostic CT pending, results of CT suggest surgical problem. 03/02/2018 7:22:55 pm report from [facility] radiology. Dr. Garrett notes the patient has a bowel obstruction with a large right inguinal hernia with incarcerated bowel, + significant bowel edema, likely requiring surgery 03/02/2018 7:34:[address] Donna Garnica general surgery on-call. She advises patient needs to be transferred to a facility with gastric bypass surgeons at [facility] to treat her. Case discussed with Dr. Garnica again. She will come evaluate the patient. 03/02/2018 9:20:[address] Garnica after evaluating the patient's advises transfer to a facility with bariatric surgery specialty. We will contact [facility] in [place], [place] and arrange for transfer. 03/02/2018 19:37:11 pm case discussed with general surgeon at [facility], who spoke with Dr. Garnica and advised urgent surgery at our facility was the priority to save strangulated bowel. She has no bariatric specialty available at [facility]. Dr. Edwards agrees to take the patient to the OR here and attempt to fix the right inguinal hernia. Decision to Disposition Date: Mar 02, 2018 Decision to Disposition Time: 19:21 (ISABEL YOUNG DO) Depart Departure Latest Vital Signs Vital Signs Date Time Temp Pulse Resp B/P (MAP) Pulse Ox O2 Delivery O2 Flow Rate FiO2 03/02/18 21:35 82 23 96 03/02/18 21:30 131/90 (104) 03/02/18 15:53 99.6 Room Air (ISABEL YOUNG DO) Impression: Primary Impression: Bowel obstruction Additional Impressions: Incarcerated right inguinal hernia History of gastric bypass Condition: Improved Disposition: ADMIT FROM ER TO OR Problem Qualifiers Primary Impression: Bowel obstruction Intestinal obstruction type: unspecified Intestinal obstruction extent: complete Qualified Codes: K56.601 - Complete intestinal obstruction, unspe cified as to cause SHANEL IVEY MD Mar 02, 2018 15:46 ISABEL YOUNG DO Mar 02, 2018 19:44
[2018-03-02] MEDS ORDERED: NS(*) 0.9% 1000 ML BAG 1,000 ML IV ONE (16:05)
[2018-03-02] MEDS ORDERED: ONDANSETRON 4 MG/2 ML VIAL IVP ONE ×2 (16:05→17:25)
[2018-03-02 16:47] LABS: PLATELET COUNT, AUTOMATED 235 K/uL (150-450)
[2018-03-02] MEDS ORDERED: MORPHINE 4 MG/ML SDV IVP ONE (17:25)
[2018-03-02] MEDS ORDERED: IOPAMIDOL 76% 75 ML INFUS BTL 75 ML ONE (17:39)
[2018-03-02] MEDS ORDERED: DIATRIZOATE MEGL/DIATRIZOA SOD 367 MG/ML SOLN ONE (17:41)
[2018-03-02] MEDS ORDERED: NS(*) 0.9% 500 ML BAG 500 ML IV ONE (18:50)
[2018-03-02] MEDS ORDERED: HYDROMORPHONE HCL 1 MG/ML SYRINGE IVP ONE (18:50)
[2018-03-02] MEDS ORDERED: PROMETHAZINE 25 MG/ML 1 ML AMP IVP ONE (18:50)
--- NOTE | 2018-03-02 19:31 | RADIOLOGY IMAGING REPORT ---
FACILITY: PATIENT NAME: Makenzie Fox : 1950 MR: [id number] V: [id number] EXAM DATE: ORDERING PHYSICIAN: SHANEL IVEY TECHNOLOGIST: Location: [facility] Patient: Makenzie Fox : 1950 Visit/Account:[id number] Date of Sevice: 03/02/2018 EXAMINATION: CT abdomen and pelvis with IV contrast HISTORY: Abdominal pain. Nausea and vomiting. S/P gastric bypass. TECHNIQUE: Axial CT images of the abdomen and pelvis were obtained with IV contrast, with coronal a nd sagittal 2D reconstructed images. One of the following dose optimization techniques was utilized in the performance of this exam: Autom ated exposure control; adjustment of the mA and/or kV according to the patient's size; or use of an i terative reconstruction technique. Specific details can be referenced in the facility's radiology C T exam operational policy. Contrast: 75 mL of IV Isovue-370. The patient declined oral contrast. COMPARISON: None. FINDINGS: Liver: Negative. Gallbladder and bile ducts: Cholecystectomy. Dilatation the central bile ducts may relate to the pos tcholecystectomy state. Spleen: Negative. Pancreas: Negative. Adrenal glands: Negative. Kidneys: Small nonobstructing right renal calculi. No hydronephrosis. The kidneys enhance normally. Bowel and peritoneum: Surgical changes of gastric bypass. There is a small bowel obstruction related to a large right inguinal hernia. The distal aspect of the Joseph limb is located in the hernia sac, w ith marked dilatation of the upstream Joseph limb and gastric pouch. The distal aspect of the pancreati cobiliary limb is also located within the hernia sac. The jejunojejunostomy extends partially into th e hernia sac. There is marked dilatation of the Joseph limb within the hernia sac with wall thickening and mesenteric edema, along with a small amount of free fluid in the hernia sac. The inferior aspect of the hernia sac is incompletely imaged. CT appearance is suspicious for an incarcerated hernia. [place] el wall thickening within the hernia sac may indicate venous congestion or early ischemic change. Dis antonio intra-abdominal small bowel loops are decompressed. Small volume of stool throughout the colon. Scattered colonic diverticulosis, without evidence of div erticulitis. No free intraperitoneal air. Pelvic structures: Negative. Lymph node assessment: Negative. Vessels: Mild vascular calcifications. Normal caliber abdominal aorta. Musculoskeletal: Thoracolumbar scoliosis, with advanced multilevel degenerative changes throughout the spine. No acute osseous findings. Left hip arthroplasty. Body wall: Large right inguinal hernia as above. Abdominal wall structures otherwise appear intact. Lung bases: Negative. IMPRESSION: 1. Small bowel obstruction related to a large right inguinal hernia. The patient has undergone prior gastric bypass. The hernia sac contains the distal Joseph limb and distal pancreaticobiliary limb, as w ell as a portion of the jejunojejunostomy. The upstream Joseph limb is markedly distended. 2. There is wall thickening of small bowel segments in the hernia sac with mesenteric edema and a sma ll amount of free fluid in the hernia sac. CT appearance is suspicious for incarceration. Bowel wall thickening may represent venous congestion or early ischemic change. Recommend surgical consultation. 3. No other acute intra-abdominal findings. Findings were discussed with Francis Kingston DO at 03/02/2018 7:23 PM. Report Dictated By: Naldo Garrett MD at 03/02/2018 7:06 PM Report E-Signed By: Naldo Garrett MD at 03/02/2018 7:28 PM WSN:[id number]
[2018-03-02] MEDS ORDERED: cefOXitin/DEX(*) 2GM/50ML PREM 50 ML IVPB ONE (21:45)
[2018-03-02] MEDS ORDERED: FAMOTIDINE(*) 20MG/50ML PREMIX 50 ML IVPB ONE (21:45)
[2018-03-02] MEDS ORDERED: NORMOSOL R SOLN(*) 1000 ML BAG 1,000 ML IV ONE (21:48)
[2018-03-02] MEDS ORDERED: LIDOCAINE MPF 1% 5 ML VIAL ONE (22:25)
[2018-03-02] MEDS ORDERED: SUGAMMADEX SOD 200 MG/2 ML SDV ONE (22:25)
[2018-03-02] MEDS ORDERED: DEXAMETHASONE SOD 4 MG/ML VIAL ONE (22:25)
[2018-03-02] MEDS ORDERED: ROCURONIUM BROM 10 MG/ML 10 ML ONE (22:25)
[2018-03-02] MEDS ORDERED: PROPOFOL EMUL(*) 10MG/ML 20 ML 20 ML ONE (22:25)
[2018-03-02] MEDS ORDERED: ONDANSETRON 4 MG/2 ML VIAL ONE (22:25)
[2018-03-02] MEDS ORDERED: fentaNYL CITR 250 MCG/5 ML AMP ONE (22:26)
[2018-03-02] MEDS ORDERED: ROPIVACAINE 0.5% 20 ML VIAL ONE (22:31)
[2018-03-02] MEDS ORDERED: KETAMINE HCL-NS 50 MG/5 ML SYR ONE (22:32)
[2018-03-02] MEDS ORDERED: ALBUMIN HUMAN 5% 250 ML BTL 250 ML ONE ×2 (22:39→22:41)
--- NOTE | 2018-03-02 22:49 | EKG ---
[place] [facility] [place] ABDOUL VALDES : [id number] MR: [id number] V: [id number] EXAM DATE: ORDERING PHYSICIAN: ISABEL YOUNG TECHNOLOGIST: PRAVIN Test Reason : PRE-OP BOWEL OBSTRUC Blood Pressure : / mmHG Vent. Rate : 080 BPM Atrial Rate : 076 BPM P-R Int : 000 ms QRS Dur : 078 ms QT Int : 388 ms P-R-T Axes : 000 -79 078 degrees QTc Int : 447 ms Demand pacemaker, interpretation is based on intrinsic rhythm Atrial fibrillation Left axis deviation RSR' or QR pattern in V1 suggests right ventricular conduction delay Inferior infarct , age undetermined ST and T wave abnormality, consider anterior ischemia or digitalis effect Abnormal ECG No previous ECGs available Confirmed by DOMINIC VEGA ([id number]) on 03/03/2018 6:48:35 AM Referred By: Confirmed By:DOMINIC VEGA
[2018-03-03] VITALS (64 sets, daily range): BP systolic 84–138; BP diastolic 45–117; Ht 144.8 cm; Wt 78.2 kg
[2018-03-03] MEDS ORDERED: fentaNYL CITR 100 MCG/2 ML AMP ONE (00:09)
[2018-03-03] MEDS ORDERED: HYDROGEN PEROXID 3% 473 ML BTL TP ONE (01:08)
[2018-03-03] MEDS: FUROSEMIDE 20 MG/2 ML VIAL ONE (01:44)
[2018-03-03] MEDS ORDERED: NORMOSOL R SOLN(*) 1000 ML BAG 1,000 ML IV ONE (01:57)
[2018-03-03] MEDS ORDERED: ONDANSETRON 4 MG/2 ML VIAL ONE (01:57)
--- NOTE | 2018-03-03 02:13 | Post Operative Progress Note ---
Post Operative Progress Note Date: Mar 03, 2018 Time: 01:45 Surgeon: Rosy Garnica MD. Anesthesia: MARISELA Saucedo MD Pre-Op Diagnosis: Incarcerated ? strangulated right inguinal hernia Post-Op Diagnosis: Incarcerated right inguinal hernia Findings: Massive right inguinal hernia with mukesh-en-y gastrojejunostomy and jejunojejunostomy incarcerated with cecum and other small bowel. Procedure(s): Exploratory laparotomy, reduction of incarcerated bowel, right inguinal hernia repair with mesh. Specimen Removed:(May be N/A): Hernia sac Complications: none from surgery Total Tourniquet Time: N/A Fluids: 1800 mL crystalloid Estimated Blood Loss: 150mL EBL 1000mL urine output Operative indications: This 67 year old female presents with a 24 hour history of not feeling well succeeded by nausea and vomiting all day today. she presented to the ED and CT scan revealed that her distantly performed Mukesh-en-Y gastrojejunostomy was incarcerated with her jejunojejunostomy into her hernia. She is brought to surgery for exploration. Informed consent was obtained from the patient. Operative summary: The patient was brought to the operating suite. She had received II grams of Mefoxin in the ED as well as undergoing burrows catheter placement. General endotracheal anesthesia was induced without difficulty. Sterile prep and drape was performed of the abdomen extending down towards the perineum where the quite large irreducible inguinal hernia extended down towards her labia. Time out was performed documenting the patient in supine position for exploration of her abdomen. Local anesthesia was induced without difficulty along the portion of her abdomen below her old incision. This was carried down through the skin and subcutaneous tissues until peritoneum was encountered. Her omentum was noted to be plastered to her anterior abdominal wall but otherwise the abdomen was without significant adhesions. Once well into the abdomen, attempts were made to reduce the incarcerated hernia. This was performed with quite some difficulty but eventually with gentle pressure on the bowel, it was gradually reduced into the abdomen. Contained within the hernia was gastrojejunostomy, jejunojejunostomy and other portions of small bowel and including cecum. Once reduced, the bowel was carefully examined and no necrotic or non viable areas were identified. The remainder of the abdomen was explored with the mukesh-en-y gastrojejunostomy noted as well as redundant colon and decompressed distal small bowel. The abdomen was copiously irrigated and any small bleeders hemostased. Attention was then directed to the right lower quadrant. Local anesthesia was infiltrated in the right lower groin along the intended incision after checking landmarks because of the markedly redundant skin. The incision was created and carried down through the skin and subcutaneous tissues. The hernia sac with some bowel reincarcerating was noted. It was delineated completely. The floor of the inguinal canal was noted to be completely destroyed. The contents of the hernia sac were then reduced into the abdomen and transfixing sutures of 3-0 vicryl suture were placed with care to maintain the bowel intraperitoneal as these were placed. The hernia sac was amputed above these sutures. Hemostasis was obtained with hemoclips and suture ligatures. The anatomy of the inguinal region was then delineated further. The pubic tubercle and the shelving border of Poupart's ligament identified. Medially, the fascia edge was identified but the intervening tissues were absent. These edges were delineated. Prolene mesh was appropriately tailored to fit the defect. Using a #1 Prolene suture the mesh was secured to these previously described fascial edges with care to avoid inadvertently including bowel in the closure. This re created the inguinal floor. The anterior edges of the external oblique were then re-approximated using 3-0 Vicryl running suture. Further investigation of the large potential space where the hernia had been was performed to investigate for any further bleeding and to accomplish hemostasis with Bovie electrocautery. A #10 GLORIA drain was placed in this space and brought out through a separate stab wound. This was secured at the skin level using a 2-0 Nylon suture. The subcutaneous tissues were approximated above the closed fascia of the external oblique using 3-0 Vicryl also. Bridget were applied to the skin. Fluffs, ABDs and tape were used to secure the dressing. An abdominal binder was also placed. The patient was returned to PACU in stable condition after tolerating her operative procedure well without complications. MEHRDAD GARNICA MD Mar 03, 2018 02:13
[2018-03-03] MEDS ORDERED: hydrALAZINE HCL 20 MG/ML VIAL IVP PRN (04:05)
[2018-03-03] MEDS ORDERED: D5 1/2 NS(*) 1000 ML BAG 1,000 ML IV PRN ×3 (04:05→15:35)
[2018-03-03] MEDS ORDERED: INSULIN HUMAN REGULAR SLIDING SCALE SC PRN (04:05)
[2018-03-03 05:54] LABS: PLATELET COUNT, AUTOMATED 193 K/uL (150-450)
[2018-03-03] MEDS: ACETAMINOPHEN(*)1000 MG/100 ML 100 ML IVPB PRN ×2 (09:28→20:37)
[2018-03-03] MEDS: HEPARIN (PORC) 5000 UN/ML VIAL SC SCH ×2 (09:32→20:37)
[2018-03-03] MEDS: KCL (*) 20 MEQ/100 ML PREMIX 100 ML IV SCH ×2 (09:32→11:51)
[2018-03-03] MEDS ORDERED: NS(*) 0.9% 500 ML BAG 500 ML ONE (09:36)
--- NOTE | 2018-03-03 09:42 | RADIOLOGY IMAGING REPORT ---
FACILITY: [facility] [place] PATIENT NAME: Makenzie Fox : 1950 MR: [id number] V: [id number] EXAM DATE: ORDERING PHYSICIAN: MEHRDAD MCCORMICK TECHNOLOGIST: Location: [facility] [place] Patient: Makenzie Fox : 1950 Visit/Account:[id number] Date of Sevice: 03/03/2018 CHEST SINGLE AP Indication: Postop fever.. Comparison: None available Findings: Left chest wall dual-lead pacer device. Heart size within normal limits. Nonspecific asymmetric haziness of the left lung which may be related to slight rotation. Cannot excl ude layering pleural effusion and/or infiltrate. Mild low lung volumes. Right lung is clear. No visualized pneumothorax. Degenerative changes within the shoulders. IMPRESSION: 1. Nonspecific asymmetric haziness of the left lung which may be projectional, related to slight rota tion. Cannot exclude layering pleural effusion and/or air trapping. Report Dictated By: Antwon Roth MD at 03/03/2018 9:39 AM Report E-Signed By: Antwon Roth MD at 03/03/2018 9:40 AM WSN:[id number]
[2018-03-03] MEDS ORDERED: ALBUMIN HUMAN 5% 250 ML BTL 250 ML IV SCH ×2 (10:30→13:00)
--- NOTE | 2018-03-03 11:05 | General Surgery Progress Note ---
Subjective Patient Complains of: Gastrointestinal: Other (incisional abdominal pain) Physical Exam Vital Signs Date Time Temp Pulse Resp B/P (MAP) Pulse Ox O2 Delivery O2 Flow Rate FiO2 03/03/18 09:41 92 03/03/18 09:30 102.0 03/03/18 09:00 19 96 Bi-PAP 50.0 03/03/18 08:00 136/89 (105) Intake and Output 03/03/18 06:59 Intake Total 5700 ml Output Total 3200 ml Balance 2500 ml Intake IV Total 3650 ml Other 2050 ml Output Urine Total 3000 ml Drainage Total 30 ml Estimated Blood Loss 150 ml Other 20 ml General Appearance: Other (awakens to verbal stimuli, improved coloration and appearance) ENT: Other (BIPAP in place) Cardiovascular: Other (irregular, intermittently tachycardic) Respiratory: Other (lungs clear but diminished bases) GI: Other (incisions dressed with minimal drainage, GLORIA drain with sanguineous output, 20-30mL since OR) : Other (burrows catheter in place draining clear yellow urine) Extremities: Other (wounds examined on feet. one tiny superficial ulcer at the left ankle crease <1cm in diameter, right #5 toe with known open sore with bone exposed, evidence of multiple prior extremitywounds, some with grafting in the past.) Integumentary: Generalized Fragile Skin Result Diagram: 03/03/18 0549 03/03/18 0549 Assessment and Plan Problems: (1) Incarcerated right inguinal hernia Status: Resolved Assessment & Plan: Patient S/P exploratory laparotomy to reduce incarcerated inguinal hernia, (R)IH repair with mesh 03/02 into 03/03: Patient is guarded. Bowel was entirely viable at operation without any suspicious areas observed at surgery and no purulence, perforation or enterotomy. Abdominal binder, mobilize as tolerated, IS if off BIPAP. (2) Bowel obstruction Status: Resolved Assessment & Plan: Patient is in tenuous condition physiologically although her bowel obstruction is now relieved. (3) Diabetes Status: Acute Assessment & Plan: Patient is fairly well controlled with glucoses in the low 100s and low dose sliding scale insulin ordered as needed (4) Obstructive sleep apnea (adult) (pediatric) Status: Chronic Assessment & Plan: Patient is requiring BIPAP to maintain her oxygenation. Check ABG CXR with possible pleural effusion but no evidence of infiltrate. Continue support with BIPAP/oxygen (5) Chronic wound of extremity Status: Chronic Assessment & Plan: open wound known at admission after prior visit to ED two days ago. Continue local wound care daily while in hospital. Resume doxycycline when patient able to take POs. (6) Hypokalemia Status: Acute Assessment & Plan: replete intravenously and follow K+ levels while she is in the hospital. (7) Sepsis Assessment & Plan: Monitoring closely. The patient has no overt source when carefully examined including inside her abdomen, urine and CXR Her lactate is 2.2 which will be rechecked at noon after further resuscitation. I will continue her perioperative antibiotics until a source is found or the patient improves. If her condition is not significantly better before this evening, I will place a central line. Continue to monitor during the day closely. Condition Patient's care is above and beyond that for a normal incarcerated inguinal hernia, s/p repair. I have spent 60 minutes of critical care contact with the patient thus far today in [id number] contact and evaluation. Continue to monitor frequently during the day. This involves monitoring and assessing for evolving sepsis, frequent examination and monitoring for tachycardia, elevated temperature, and other signs of worsening condition. Critical Time Spent: 1st 30-74 Minutes Exam Sepsis Risk: Sepsis Risk Sepsis Stage: Sepsis Possible Source: Unknown Date Exam Occurred: Mar 03, 2018 Time Exam Occurred: 10:37 Vital Signs T=102 (R), P=94, R=23, saO2=96%, 97/65SBP SBP Drop > 40 mmHg from Baseli: No Respiratory Exam: Decreased Breath Sounds Cardiovascular Exam: Irregular Rhythm Capillary Refill: Greater than 2 Seconds Peripheral Pulse: Strong Pulse Location: Carotid (no source thus far. Abominal exploration without findings of purulence or necrosis, UA unremarkable, CXR without infiltrate. Repeating lactate at noon with ABGs, obtaining blood cultures, will continue mefoxin for possible bowel source and adjust if anything different becomes apparent.) Skin Exam: Accident Problem Qualifiers (1) Bowel obstruction: Intestinal obstruction type: unspecified Intestinal obstruction extent: c omplete Qualified Codes: K56.601 - Complete intestinal obstruction, unspecifi ed as to cause (2) Diabetes: Diabetes mellitus type: type 2 Diabetes mellitus watermaster insulin use: without penitentiary use Diabetes mellitus complication status: without complication Qualified Codes: E11.9 - Type 2 diabetes mellitus without complications MEHRDAD MCCORMICK MD Mar 03, 2018 10:24
--- NOTE | 2018-03-03 12:01 | Medical Nutrition Therapy ---
Nutrition Anthropometrics Height (Inches): 57.00 Height (Calculated Centimeters: 144.446190 Weight (Pounds): 170 Weight (Calculated Kilograms): 77.111 Deondre Nutrition Score: Probably Inadequate Deondre Nutrition Risk Score: 12 Dietary Referral Nutrition Risk Factors: Nutrition Risk Comment: Physical Findings Physical Appearance: Obese BMI 30-39 Skin Appearance Skin Appearance: Edema Edema Location Modifier: Both Edema Location: Leg Type of Edema: Degree of Edema: Gastrointestinal Symptoms GI Symtoms: Tube Present: Bowel Sounds: Recent Bowel Pattern: Diarrhea Stool Characteristics: Loose Nutritional Diagnosis Nutritional Risk Acuity 1: GI Obstruction Nutritional Risk Acuity 3: Nausea Past Medical History: T2DM Nutritional Acuity: 1-High Nutrition Diagnosis: Increased Nutrient Needs Nutrition Etiology: Physiological Causes Nutrition Problem/Etiology/Sym: Increased protein needs related to physiological causes as evidenced by recent exploratory surgery, open wound and need for wound healing. Adjusted Energy Requirement Re: 1450 ([id number] (HB x 1.3-1.4)) Protein Requirement: 77 Fluid Requirement: 2310 (30 ml/kg) Diet Type: NPO (Nothing by Mouth) Nutrition Intervention: Incr diet as tolerated Drug/Nutrition Recommendations: Patient Taking K+ Nutrition Monitoring & Eval RD Patient Assessment Time: [address] Assessment Type: RD Assessment Patient Nutrition Acuity: 1-High Follow Up Date: Mar 06, 2018 Nutritional Comment: 03/03 Pt admitted to ICU s/p exploratory latarotomy to reduce incarcerated inguinal hernia. Bowel obstruction releived but pt has an open wound. PMH of DM which seems to be well controlled. BMI in obese category. Currently on insulin. Notable labs include K 3.1, BUN 21 and glc WNL. Currently NPO. Will cont to monitor clinical progression and diet advancement. -SINDHU MAHAJAN Mar 03, 2018 12:01
[2018-03-03] MEDS: cefOXitin/DEX(*) 2GM/50ML PREM 50 ML IVPB SCH ×3 (12:13→23:43)
[2018-03-03] MEDS ORDERED: LORA-629 PO (12:48)
[2018-03-03] MEDS ORDERED: LEVO150T78 PO (12:48)
[2018-03-03] MEDS ORDERED: CYAN1000 IM (12:48)
[2018-03-03] MEDS ORDERED: CHOL500025 PO (12:48)
[2018-03-03] MEDS ORDERED: KCL (*) 20 MEQ/100 ML PREMIX 100 ML IV ONE (13:00)
[2018-03-03] MEDS ORDERED: NS(*) 0.9% 1000 ML BAG 1,000 ML IV ONE (15:35)
--- NOTE | 2018-03-03 19:32 | General Surgery Progress Note ---
Subjective Patient Complains of: Musculoskeletal: Pain Physical Exam Vital Signs Date Time Temp Pulse Resp B/P (MAP) Pulse Ox O2 Delivery O2 Flow Rate FiO2 03/03/18 18:30 93 21 95/65 (75) 93 Bi-PAP 25.0 03/03/18 18:00 100.0 Intake and Output 03/03/18 06:59 Intake Total 5700 ml Output Total 3200 ml Balance 2500 ml Intake IV Total 3650 ml Other 2050 ml Output Urine Total 3000 ml Drainage Total 30 ml Estimated Blood Loss 150 ml Other 20 ml General Appearance: Other (awakens to verbal stimuli and intermittently.) ENT: Other (BIPAP remains in place) Cardiovascular: Other (irregular, rate has slowly decreased during the day) Respiratory: Other (continues with good oxygenation with BIPAP) GI: Other (surgical incisions dry and intact, retention sutures in place, binder in place) : Other (urine output is generally approximately 30mL/hour) Extremities: Other (special lymphedema dressings in place, see wounds as noted earlier today) Result Diagram: 03/03/18 0549 03/03/18 1635 lactate 1600 1.8 K+=4.1 Assessment and Plan Problems: (1) Incarcerated right inguinal hernia Status: Resolved Assessment & Plan: Patient S/P exploratory laparotomy to reduce incarcerated inguinal hernia, (R)IH repair with mesh 03/02 into 03/03: Patient is guarded. Bowel was entirely viable at operation without any suspicious areas observed at surgery and no purulence, perforation or enterotomy. Abdominal binder, mobilize as tolerated, IS if off BIPAP. (2) Bowel obstruction Status: Resolved Assessment & Plan: Patient is in tenuous condition physiologically although her bowel obstruction is now relieved. 03/03/191929 Patient has improved markedly through the day as I have visited her at least 4 times with good MAPs, improved urine output, drop of her lactate to 1.8, acceptable urine output. Continue ICU. I have discussed her situation with both the outgoing and incoming nurse. Continue mefoxin. Await blood cultures. I did discuss COR status with the patient's son who advises the patient's wishes are for no CPR or intubation. Drugs are acceptable. (3) Diabetes Status: Acute Assessment & Plan: Patient is fairly well controlled with glucoses in the low 100s and low dose sliding scale insulin ordered as needed (4) Obstructive sleep apnea (adult) (pediatric) Status: Chronic Assessment & Plan: Patient is requiring BIPAP to maintain her oxygenation. Check ABG CXR with possible pleural effusion but no evidence of infiltrate. Continue support with BIPAP/oxygen (5) Chronic wound of extremity Status: Chronic Assessment & Plan: open wound known at admission after prior visit to ED two days ago. Continue local wound care daily while in hospital. Resume doxycycline when patient able to take POs. (6) Hypokalemia Status: Acute Assessment & Plan: replete intravenously and follow K+ levels while she is in the hospital. (7) Sepsis Assessment & Plan: Monitoring closely. The patient has no overt source when carefully examined including inside her abdomen, urine and CXR Her lactate is 2.2 which will be rechecked at noon after further resuscitation. I will continue her perioperative antibiotics until a source is found or the patient improves. If her condition is not significantly better before this evening, I will place a central line. Continue to monitor during the day closely. Exam Sepsis Risk: Sepsis Risk Sepsis Stage: Sepsis (lactate is improved to 1.8 at 1600.) Possible Source: Unknown (patient is improved with MAP 77 when I was last there) Problem Qualifiers (1) Bowel obstruction: Intestinal obstruction type: unspecified Intestinal obstruction extent: complete Qualified Codes: K56.601 - Complete intestinal obstruction, u nspecified as to cause (2) Diabetes: Diabetes mellitus type: type 2 Diabetes mellitus termination clerk insulin use: without skilled nursing use Diabetes mellitus complication status: without complication Qualified Codes: E11.9 - Type 2 diabetes mellitus without complications MEHRDAD MCCORMICK MD Mar 03, 2018 19:32
[2018-03-03] MEDS: D5 1/2 NS(*) 1000 ML BAG 1,000 ML IV PRN (22:06)
[2018-03-04] VITALS (57 sets, daily range): BP systolic 86–138; BP diastolic 50–99
[2018-03-04] MEDS ORDERED: NS(*) 0.9% 1000 ML BAG 1,000 ML ONE (01:09)
[2018-03-04 05:29] LABS: PLATELET COUNT, AUTOMATED 150 K/uL (150-450)
[2018-03-04] MEDS: cefOXitin/DEX(*) 2GM/50ML PREM 50 ML IVPB SCH ×4 (06:08→23:40)
--- NOTE | 2018-03-04 06:38 | RADIOLOGY IMAGING REPORT ---
FACILITY: [facility] PATIENT NAME: Makenzie Fox : 1950 MR: [id number] V: [id number] EXAM DATE: ORDERING PHYSICIAN: MEHRDAD MCCORMICK TECHNOLOGIST: Location: [facility] Patient: Makenzie Fox : 1950 Visit/Account:[id number] Date of Sevice: 03/04/2018 Portable chest: Indication: Fever. Technique: A single frontal film was obtained. Comparison: 03/03/2018 Skeletal and soft tissue structures: Intact and unchanged. Heart and mediastinum: Stable. Lung rowell: There is persistent ill-defined opacity in the left lower lung field, which may represen t parenchymal consolidation and/or pleural effusion. The right lung is unchanged. Pleural spaces: Possible small left effusion. No evidence of pneumothorax. Impression: No significant change. Report Dictated By: Jose Alvarez MD at 03/04/2018 6:32 AM Report E-Signed By: Jose Alvarez MD at 03/04/2018 6:35 AM WSN:[id number]
[2018-03-04] MEDS: D5 1/2 NS(*) 1000 ML BAG 1,000 ML IV PRN ×2 (07:32→19:51)
[2018-03-04] MEDS: MORPHINE 2 MG/ML SYR IVP PRN ×6 (08:48→23:41)
[2018-03-04] MEDS: HEPARIN (PORC) 5000 UN/ML VIAL SC SCH ×2 (08:54→21:36)
[2018-03-04] MEDS: ACETAMINOPHEN(*)1000 MG/100 ML 100 ML IVPB PRN ×2 (09:11→15:13)
--- NOTE | 2018-03-04 09:43 | General Surgery Progress Note ---
Subjective Patient Complains of: Gastrointestinal: Other (abdominal pain) Physical Exam Vital Signs Date Time Temp Pulse Resp B/P (MAP) Pulse Ox O2 Delivery O2 Flow Rate FiO2 03/04/18 08:35 95 Bi-PAP 25.0 03/04/18 06:00 94 26 111/73 (86) 03/04/18 05:45 100.0 Intake and Output 03/04/18 06:59 Intake Total 4956 ml Output Total 1230 ml Balance 3726 ml Intake IV Total 4956 ml Output Urine Total 1160 ml Drainage Total 70 ml General Appearance: Alert, Awake Cardiovascular: Other (irregular rhythm but improved rate) Respiratory: Clear to Auscultation, Other (Bipap in place) GI: Other (incisions clean and dry when examined today, retention sutures in place, few bowel sounds, small amount of stool today) : Other (Romero catheter to gravity drainage) Extremities: Other (no obvious edema of the thighs above the lymphedema garments, warm, open wound (R) small toe noted yesterday during dressing change) Integumentary: Generalized Fragile Skin Result Diagram: 03/04/1851703/04/18517 Monitor Interpretation: Atrial Fibrillation Assessment and Plan Problems: (1) Incarcerated right inguinal hernia Status: Resolved Assessment & Plan: Patient S/P exploratory laparotomy to reduce incarcerated inguinal hernia, (R)IH repair with mesh 03/02 into 03/03: Patient is guarded. Bowel was entirely viable at operation without any suspicious areas observed at surgery and no purulence, perforation or enterotomy. Abdominal binder, mobilize as tolerated, IS if off BIPAP. 03/04/18 0923: Patient is doing better today with improved blood pressure and complaining of abdominal pain. We will gingerly start pain medications. Mobilize. PT for ambulation as tolerated. (2) Bowel obstruction Status: Resolved Assessment & Plan: Patient is in tenuous condition physiologically although her bowel obstruction is now relieved. 03/03/191929 Patient has improved markedly through the day as I have visited her at least 4 times with good MAPs, improved urine output, drop of her lactate to 1.8, acceptable urine output. Continue ICU. I have discussed her situation with both the outgoing and incoming nurse. Continue mefoxin. Await blood cultures. I did discuss COR status with the patient's son who advises the patient's wishes are for no CPR or intubation. Drugs are acceptable. 03/04/1825: When patient seen this morning, she was starting to have more bowel function. Will consider starting clear liquid sips later today if she is able to wean off her BiPAP somewhat and if she continues to have evidence of returning bowel function. (3) Diabetes Status: Chronic Assessment & Plan: Patient is fairly well controlled with glucoses in the low 100s and low dose sliding scale insulin ordered as needed 03/04/18925: Patient had slightly more elevated glucoses during the night. Continue to check accu-checks. Once she stabilizes more and starts taking POs adequately, resume regular home medications. (4) Obstructive sleep apnea (adult) (pediatric) Status: Chronic Assessment & Plan: Patient is requiring BIPAP to maintain her oxygenation. Check ABG CXR with possible pleural effusion but no evidence of infiltrate. Continue support with BIPAP/oxygen 03/04/1835: Patient's CXR is unchanged with possible pleural effusion or consolidation. Continue support with BiPAP/oxygen. Mobilize today. (5) Chronic wound of extremity Status: Chronic Assessment & Plan: open wound known at admission after prior visit to ED two days ago. Continue local wound care daily while in hospital. Resume doxycycline when patient able to take POs. 03/04/1828: Dressing change was performed yesterday and will be performed tomorrow. PT involved in wound care for the small toe (had been involved previously when she presented to ED another time last week). Patient possibly has osteomyelitis of the small toe with bone exposed in the wound. (6) Hypokalemia Status: Acute Assessment & Plan: replete intravenously and follow K+ levels while she is in the hospital. (7) Sepsis Status: Resolved Assessment & Plan: Monitoring closely. The patient has no overt source when carefully examined including inside her abdomen, urine and CXR Her lactate is 2.2 which will be rechecked at noon after further resuscitation. I will continue her perioperative antibiotics until a source is found or the patient improves. If her condition is not significantly better before this evening, I will place a central line. Continue to monitor during the day closely. 03/04/18 0937: Patient is doing much better. Only significant possibility for infection source seems to be right #5 open toe wound but this is without gross purulence or cellulitis. WBCs normal today as is lactate. Blood pressures improved. Decrease intravenous fluids as tolerated. Weight unchanged and urine output acceptable. Critical Time Spent: 1st 30-74 Minutes (patient seen and examined in [id number] contact with monitoring and evaluation as necessary.) Exam Sepsis Risk: Sepsis Risk Problem Qualifiers (1) Bowel obstruction: Intestinal obstruction type: unspecified Intestinal obstruction extent: complete Qualified Codes: K56.601 - Complete intestinal obstruction, un specified as to cause (2) Diabetes: Diabetes mellitus type: type 2 Diabetes mellitus correction insulin use: without termite renewal inspector use Diabetes mellitus complication status: without complication Qualified Codes: E11.9 - Type 2 diabetes mellitus without complications MEHRDAD MCCORMICK MD Mar 04, 2018 09:43
[2018-03-04] MEDS: KCL (*) 20 MEQ/100 ML PREMIX 100 ML IV SCH ×2 (10:05→13:23)
[2018-03-04] MEDS ORDERED: ENOXAPARIN 40 MG/0.4ML SYR SC SCH (18:25)
[2018-03-05] VITALS (42 sets, daily range): BP systolic 117–143; BP diastolic 72–108
[2018-03-05] MEDS: ACETAMINOPHEN(*)1000 MG/100 ML 100 ML IVPB PRN (00:50)
[2018-03-05] MEDS: MORPHINE 2 MG/ML SYR IVP PRN ×11 (02:32→23:38)
[2018-03-05] MEDS: cefOXitin/DEX(*) 2GM/50ML PREM 50 ML IVPB SCH ×4 (05:16→23:38)
[2018-03-05 06:09] LABS: PLATELET COUNT, AUTOMATED 168 K/uL (150-450)
[2018-03-05] MEDS: D5 1/2 NS(*) 1000 ML BAG 1,000 ML IV PRN ×2 (07:09→19:17)
--- NOTE | 2018-03-05 07:35 | General Surgery Progress Note ---
Subjective Progress Notes Subjective Pt on BIPAP, c/o abdominal pain. Has had several BMs in last 24 hours. Physical Exam Vital Signs Date Time Temp Pulse Resp B/P (MAP) Pulse Ox O2 Delivery O2 Flow Rate FiO2 03/05/18 06:30 99.2 96 12 142/83 (102) 97 Bi-PAP 25.0 Intake and Output 03/05/18 06:59 Intake Total 2659 ml Output Total 1405 ml Balance 1254 ml Intake IV Total 2659 ml Output Urine Total 1360 ml Drainage Total 45 ml # Bowel Movements 3 General Appearance: Alert, Awake, No Acute Distress, Afebrile GI: Other (Soft, appropriate postop TTP, incisions look good without erythema or drainage. GLORIA with serosanguinous drainage.) Result Diagram: 03/05/18 0503/05/18 05 Monitor Interpretation: Atrial Fibrillation Assessment and Plan Problems: (1) Incarcerated right inguinal hernia Status: Resolved Assessment & Plan: Patient S/P exploratory laparotomy to reduce incarcerated inguinal hernia, (R)IH repair with mesh 03/02 into 03/03: Patient is guarded. Bowel was entirely viable at operation without any suspicious areas observed at surgery and no purulence, perforation or enterotomy. Abdominal binder, mobilize as tolerated, IS if off BIPAP. 03/04/18 0923: Patient is doing better today with improved blood pressure and complaining of abdominal pain. We will gingerly start pain medications. Mobilize. PT for ambulation as tolerated. 03/05/18: Doing well. Passing BMs and flatus. Will start clear diet. Start PT/OT today. Wean off BIPAP, she is apparently insisting that she wear it even during daytime but I need to see how she's ventilating/oxygenating during the daytime with only O2 via nasal canula. If she does well with this then we can transfer her to med/surg later today or tomorrow. (2) Bowel obstruction Status: Resolved Assessment & Plan: Patient is in tenuous condition physiologically although her bowel obstruction is now relieved. 03/03/191929 Patient has improved markedly through the day as I have visited her at least 4 times with good MAPs, improved urine output, drop of her lactate to 1.8, acceptable urine output. Continue ICU. I have discussed her situation with both the outgoing and incoming nurse. Continue mefoxin. Await blood cultures. I did discuss COR status with the patient's son who advises the patient's wishes are for no CPR or intubation. Drugs are acceptable. 03/04/18924: When patient seen this morning, she was starting to have more bowel function. Will consider starting clear liquid sips later today if she is able to wean off her BiPAP somewhat and if she continues to have evidence of returning bowel function. (3) Diabetes Status: Chronic Assessment & Plan: Patient is fairly well controlled with glucoses in the low 100s and low dose sliding scale insulin ordered as needed 03/04/18925: Patient had slightly more elevated glucoses during the night. Continue to check accu-checks. Once she stabilizes more and starts taking POs adequately, resume regular home medications. (4) Obstructive sleep apnea (adult) (pediatric) Status: Chronic Assessment & Plan: Patient is requiring BIPAP to maintain her oxygenation. Check ABG CXR with possible pleural effusion but no evidence of infiltrate. Continue support with BIPAP/oxygen 03/04/1835: Patient's CXR is unchanged with possible pleural effusion or consolidation. Continue support with BiPAP/oxygen. Mobilize today. (5) Chronic wound of extremity Status: Chronic Assessment & Plan: open wound known at admission after prior visit to ED two days ago. Continue local wound care daily while in hospital. Resume doxycycline when patient able to take POs. 03/04/1828: Dressing change was performed yesterday and will be performed tomorrow. PT involved in wound care for the small toe (had been involved previously when she presented to ED another time last week). Patient possibly has osteomyelitis of the small toe with bone exposed in the wound. (6) Hypokalemia Status: Acute Assessment & Plan: replete intravenously and follow K+ levels while she is in the hospital. (7) Sepsis Status: Resolved Assessment & Plan: Monitoring closely. The patient has no overt source when carefully examined including inside her abdomen, urine and CXR Her lactate is 2.2 which will be rechecked at noon after further resuscitation. I will continue her perioperative antibiotics until a source is found or the patient improves. If her condition is not significantly better before this evening, I will place a central line. Continue to monitor during the day closely. 03/04/18 0937: Patient is doing much better. Only significant possibility for infection source seems to be right #5 open toe wound but this is without gross purulence or cellulitis. WBCs normal today as is lactate. Blood pressures improved. Decrease intravenous fluids as tolerated. Weight unchanged and urine output acceptable. Condition Stable. Time Spent: < 30 min Exam Sepsis Risk: Sepsis Risk Problem Qualifiers (1) Bowel obstruction: Intestinal obstruction type: unspecified Intestinal obstruction extent: complete Qualified Codes: K56.601 - Complete intestinal obstruction, unspecified as to cause (2) Diabetes: Diabetes mellitus type: type 2 Diabetes mellitus rn long term care insulin use: without rn long term care use Diabetes mellitus complication status: without complication Qualified Codes: E11.9 - Type 2 diabetes mellitus without complications VANDANA SAMANO MD Mar 05, 2018 07:35
[2018-03-05] MEDS ORDERED: ENOXAPARIN 40 MG/0.4ML SYR SC SCH (09:00)
[2018-03-05] MEDS: HEPARIN (PORC) 5000 UN/ML VIAL SC SCH ×2 (09:38→21:18)
[2018-03-06] VITALS (15 sets, daily range): BP systolic 102–133; BP diastolic 70–92
[2018-03-06] MEDS: MORPHINE 2 MG/ML SYR IVP PRN ×5 (01:54→20:12)
[2018-03-06] MEDS: ACETAMINOPHEN(*)1000 MG/100 ML 100 ML IVPB PRN (02:57)
[2018-03-06] MEDS: cefOXitin/DEX(*) 2GM/50ML PREM 50 ML IVPB SCH ×4 (05:27→23:45)
[2018-03-06 05:30] LABS: PLATELET COUNT, AUTOMATED 168 K/uL (150-450)
[2018-03-06] MEDS ORDERED: D5 1/2 NS(*) 1000 ML BAG 1,000 ML IV PRN (06:27)
[2018-03-06] MEDS ORDERED: diphenhydrAMINE 25 MG CAP PO PRN (06:30)
[2018-03-06] MEDS ORDERED: ONDANSETRON 4 MG TAB PO PRN (06:30)
[2018-03-06] MEDS ORDERED: AMMONIUM LACTATE TP PRN ×2 (06:30→07:45)
[2018-03-06] MEDS ORDERED: SUMAtriptan SUCC 25MG TAB PO PRN (06:30)
[2018-03-06] MEDS ORDERED: DOCUSATE SODIUM 100 MG CAP PO PRN (06:30)
--- NOTE | 2018-03-06 06:40 | General Surgery Progress Note ---
Subjective Progress Notes Subjective Main complaint is abdominal pain. Passing flatus. Tolerating clear diet. Physical Exam Vital Signs Date Time Temp Pulse Resp B/P (MAP) Pulse Ox O2 Delivery O2 Flow Rate FiO2 03/06/18 06:00 99.2 90 17 117/72 (87) 96 Nasal Cannula 2.0 03/06/18 05:34 25.0 Intake and Output 03/06/18 07:00 Intake Total 2527 ml Output Total 4620 ml Balance -2093 ml Intake Oral 170 ml IV Total 2357 ml Output Urine Total 4550 ml Drainage Total 70 ml General Appearance: Alert, Awake, No Acute Distress, Afebrile GI: Other (Soft, appropriate postop TTP, Incisions look good without erythema or drainage. GLORIA with serosanguinous drainage) Extremities: Warm, Perfused Result Diagram: 03/06/1852603/06/18526 Monitor Interpretation: Atrial Fibrillation Assessment and Plan Problems: (1) Incarcerated right inguinal hernia Status: Resolved Assessment & Plan: Patient S/P exploratory laparotomy to reduce incarcerated inguinal hernia, (R)IH repair with mesh 03/02 into 03/03: Patient is guarded. Bowel was entirely viable at operation without any suspicious areas observed at surgery and no purulence, perforation or enterotomy. Abdominal binder, mobilize as tolerated, IS if off BIPAP. 03/04/18 0923: Patient is doing better today with improved blood pressure and complaining of abdominal pain. We will gingerly start pain medications. Mobilize. PT for ambulation as tolerated. 03/05/18: POD#2 s/p incarcerated RIH repair. Doing well. Passing BMs and flatus. Will start clear diet. Start PT/OT today. Wean off BIPAP, she is apparently insisting that she wear it even during daytime but I need to see how she's ventilating/oxygenating during the daytime with only O2 via nasal canula. If she does well with this then we can transfer her to med/surg later today or tomorrow. 03/06/18: POD#3. Doing well. Very emotional and very pain sensitive. Will start regular diet and restart her regular home medications which will hopefully improve her pain control in this chronic pain and opioid patient who likely has compromise pain tolerance. She also refuses to have her burrows catheter removed this morning "because I pee all the time." I told her that it is an infection risk but she replies "I have never had an infection due to a catheter." I compromised with her and we will plan to remove it tomorrow morning although she remains resistant to this and wants to keep it in. I told her that we need to remove it before she's able to go home but she didn't seem interested in my rationale. Increase activity. She's been very resistant to working with PT/OT and very resistant to efforts at getting her up to ambulate. I reinforced to her that she needs to get up and walk around with staff today. We can transfer her to Med/Surg today if they have a bed for her there. She may require inpatient rehab after discharge. (2) Bowel obstruction Status: Resolved Assessment & Plan: Patient is in tenuous condition physiologically although her bowel obstruction is now relieved. 03/03/191929 Patient has improved markedly through the day as I have visited her at least 4 times with good MAPs, improved urine output, drop of her lactate to 1.8, acceptable urine output. Continue ICU. I have discussed her situation with both the outgoing and incoming nurse. Continue mefoxin. Await blood cultures. I did discuss COR status with the patient's son who advises the patient's wishes are for no CPR or intubation. Drugs are acceptable. 03/04/18924: When patient seen this morning, she was starting to have more bowel function. Will consider starting clear liquid sips later today if she is able to wean off her BiPAP somewhat and if she continues to have evidence of returning bowel function. (3) Diabetes Status: Chronic Assessment & Plan: Patient is fairly well controlled with glucoses in the low 100s and low dose sliding scale insulin ordered as needed 03/04/18925: Patient had slightly more elevated glucoses during the night. Continue to check accu-checks. Once she stabilizes more and starts taking POs adequately, resume regular home medications. (4) Obstructive sleep apnea (adult) (pediatric) Status: Chronic Assessment & Plan: Patient is requiring BIPAP to maintain her oxygenation. Check ABG CXR with possible pleural effusion but no evidence of infiltrate. Continue support with BIPAP/oxygen 03/04/18934: Patient's CXR is unchanged with possible pleural effusion or consolidation. Continue support with BiPAP/oxygen. Mobilize today. (5) Chronic wound of extremity Status: Chronic Assessment & Plan: open wound known at admission after prior visit to ED two days ago. Continue local wound care daily while in hospital. Resume doxycycline when patient able to take POs. 03/04/18 0928: Dressing change was performed yesterday and will be performed t omorrow. PT involved in wound care for the small toe (had been involved previously when she presented to ED another time last week). Patient possibly has osteomyelitis of the small toe with bone exposed in the wound. (6) Hypokalemia Status: Resolved Assessment & Plan: replete intravenously and follow K+ levels while she is in the hospital. (7) Sepsis Status: Resolved Assessment & Plan: Monitoring closely. The patient has no overt source when carefully examined including inside her abdomen, urine and CXR Her lactate is 2.2 which will be rechecked at noon after further resuscitation. I will continue her perioperative antibiotics until a source is found or the patient improves. If her condition is not significantly better before this evening, I will place a central line. Continue to monitor during the day closely. 03/04/18 0937: Patient is doing much better. Only significant possibility for infection source seems to be right #5 open toe wound but this is without gross purulence or cellulitis. WBCs normal today as is lactate. Blood pressures impr jacklyn. Decrease intravenous fluids as tolerated. Weight unchanged and urine output acceptable. Condition Stable. Time Spent: < 30 min Exam Sepsis Risk: No Definite Risk Problem Qualifiers (1) Bowel obstruction: Intestinal obstruction type: unspecified Intestinal obstruction extent: complete Qualified Codes: K56.601 - Complete intestinal obstruction, unspecified as to cause (2) Diabetes: Diabetes mellitus type: type 2 Diabetes mellitus intermediate insulin use: without manager long term care use Diabetes mellitus complication status: without complication Qualified Codes: E11.9 - Type 2 diabetes mellitus without complications VANDANA SAMANO MD Mar 06, 2018 06:39
[2018-03-06] MEDS: SPIRONOLACTONE 25 MG TAB PO SCH ×2 (07:25→16:54)
[2018-03-06] MEDS ORDERED: metFORMIN HCL 500 MG TAB PO SCH (08:00)
[2018-03-06] MEDS: MULTIVITAMINS TAB PO SCH (08:40)
[2018-03-06] MEDS: MORPHINE 60 MG PO SCH ×2 (08:43→20:27)
[2018-03-06] MEDS: POTASSIUM CHL 20 MEQ TABCR PO SCH (08:44)
[2018-03-06] MEDS: FUROSEMIDE 40 MG TAB PO SCH (08:44)
[2018-03-06] MEDS: metFORMIN HCL 500 MG TAB PO SCH ×2 (08:44→16:54)
[2018-03-06] MEDS: HEPARIN (PORC) 5000 UN/ML VIAL SC SCH ×2 (08:45→20:27)
[2018-03-06] MEDS: LEVOTHYROXINE SOD 0.150 MG TAB PO SCH (08:46)
[2018-03-06] MEDS ORDERED: FUROSEMIDE 40 MG TAB PO SCH (09:00)
[2018-03-06] MEDS ORDERED: CYANOCOBALAMIN 1000MCG/ML VIAL IM ONLY ONE (09:00)
[2018-03-06] MEDS: oxyCODONE HCL 5 MG CAP PO PRN ×3 (09:21→21:39)
--- NOTE | 2018-03-06 11:14 | Medical Nutrition Therapy ---
Nutrition Anthropometrics Height (Inches): 57.00 Height (Calculated Centimeters: 144.122360 Weight (Pounds): 174 Weight (Calculated Kilograms): 78.925 Deondre Nutrition Score: Probably Inadequate Deondre Nutrition Risk Score: 12 Dietary Referral Nutrition Risk Factors: Nutrition Risk Comment: Physical Findings Physical Appearance: Obese BMI 30-39 Skin Appearance Skin Appearance: Edema Edema Location Modifier: Both Edema Location: Leg Type of Edema: Degree of Edema: Gastrointestinal Symptoms GI Symtoms: Change in Bowel Pattern Tube Present: Bowel Sounds: Recent Bowel Pattern: Diarrhea Stool Characteristics: Loose Nutritional Diagnosis Nutritional Risk Acuity 2: Abcess/Non-Healing Wound Past Medical History: T2DM Nutritional Acuity: 2-Moderate Nutrition Diagnosis: Increased Nutrient Needs Nutrition Etiology: Physiological Causes Nutrition Problem/Etiology/Sym: Increased protein needs related to physiological causes as evidenced by recent exploratory surgery, open wound and need for wound healing. Adjusted Energy Requirement Re: 1450 ([id number] (HB x 1.3-1.4)) Protein Requirement: 77 Fluid Requirement: 2310 (30 ml/kg) Diet Type: Diabetic Nutrition Intervention: Cont diet as ordered, Encourage intake Drug: Diuretics Drug/Nutrition Recommendations: Patient Taking K+ Nutrition Monitoring & Eval RD Patient Assessment Time: [address] Assessment Type: RD Re-Assessment Patient Nutrition Acuity: 2-Moderate Follow Up Date: Mar 11, 2018 Nutritional Comment: 03/03 Pt admitted to ICU s/p exploratory latarotomy to reduce incarcerated inguinal hernia. Bowel obstruction releived but pt has an open wound. PMH of DM which seems to be well controlled. BMI in obese category. Currently on insulin. Notable labs include K 3.1, BUN 21 and glc WNL. Currently NPO. Will cont to monitor clinical progression and diet advancement. -EK 03/06. Pt underwent surgery for GI, doing well but cont to experince pain. Pt was on the clear liquid diet but refused all meals. Pt is now on a diabetic diet with no meals to report. Pt has been passing flatus and BM. Pt cont to receive insulin, 1-5 units humulin SS. BG levels seem to be improving. Pt also receiving 1mg potassium depleting diuretic Q day and 50mg potassium sparing diuretic BID. Potassium levels are WNL. Other notable labs include low RBC 3.9 and calcium, 8.2. Pt experiencing non pitting edema in both legs. Noticed a recent weight gain of 9lbs since admission, possibly due to IV medications, fluids, or edema. Will cont to monitor. CEASAR TERRY Mar 06, 2018 08:23
[2018-03-06] MEDS: CHOLECALCIFEROL 1000 UNIT TAB PO SCH (12:30)
[2018-03-06] MEDS: MAGNESIUM OXIDE 400 MG TAB PO SCH (12:30)
[2018-03-06] MEDS: FLUTICASONE PROP 0.05% 16 GM SCH (20:25)
[2018-03-06] MEDS: ESCITALOPRAM OXALATE 10 MG TAB PO SCH (20:26)
[2018-03-06] MEDS: traZODone HCL 50 MG TAB PO SCH (20:27)
[2018-03-06] MEDS: TOPIRAMATE 100 MG TAB PO SCH (20:27)
[2018-03-06] MEDS: LORATADINE 10 MG TAB PO SCH (20:27)
[2018-03-06] MEDS: ATENOLOL 25 MG TAB PO SCH (20:28)
[2018-03-07 02:49] VITALS: BP 92/65
[2018-03-07] MEDS: MORPHINE 2 MG/ML SYR IVP PRN ×2 (02:49→16:01)
[2018-03-07] MEDS: cefOXitin/DEX(*) 2GM/50ML PREM 50 ML IVPB SCH (05:40)
[2018-03-07] MEDS: oxyCODONE HCL 5 MG CAP PO PRN ×3 (05:40→19:24)
[2018-03-07] MEDS: LEVOTHYROXINE SOD 0.150 MG TAB PO SCH (06:10)
[2018-03-07 06:39] LABS: PLATELET COUNT, AUTOMATED 181 K/uL (150-450)
--- NOTE | 2018-03-07 06:54 | General Surgery Progress Note ---
Subjective Progress Notes Subjective Only complaint is abdominal pain, didn't sleep well overnight. Had run of a-fib with RVR on top of her chronic a-fib; now better this morning. Physical Exam Vital Signs Date Time Temp Pulse Resp B/P (MAP) Pulse Ox O2 Delivery O2 Flow Rate FiO2 03/07/18 04:46 86 03/07/18 02:49 98.8 16 92/65 (74) 91 CPAP 03/07/18 00:00 2.0 03/06/18 05:34 25.0 Intake and Output 03/07/18 07:00 Intake Total 750 ml Output Total 2625 ml Balance -1875 ml Intake Oral 590 ml IV Total 160 ml Output Urine Total 2550 ml Drainage Total 50 ml Other 25 ml General Appearance: Alert, Awake, No Acute Distress, Afebrile GI: Other (Soft, incisions look good without erythema or drainage. GLORIA with serous drainage.) Extremities: Warm, Perfused Result Diagram: 03/06/18 0503/07/18 05 Monitor Interpretation: Atrial Fibrillation Assessment and Plan Problems: (1) Incarcerated right inguinal hernia Status: Resolved Assessment & Plan: Patient S/P exploratory laparotomy to reduce incarcerated inguinal hernia, (R)IH repair with mesh 03/02 into 03/03: Patient is guarded. Bowel was entirely viable at operation without any suspicious areas observed at surgery and no purulence, perforation or enterotomy. Abdominal binder, mobilize as tolerated, IS if off BIPAP. 03/04/18 0923: Patient is doing better today with improved blood pressure and com plaining of abdominal pain. We will gingerly start pain medications. Mobilize. PT for ambulation as tolerated. 03/05/18: POD#2 s/p incarcerated RIH repair. Doing well. Passing BMs and flatus. Will start clear diet. Start PT/OT today. Wean off BIPAP, she is apparently insisting that she wear it even during daytime but I need to see how she's ventilating/oxygenating during the daytime with only O2 via nasal canula. If she does well with this then we can transfer her to med/surg later today or tomorrow. 03/06/18: POD#3. Doing well. Very emotional and very pain sensitive. Will start regular diet and restart her regular home medications which will hopefully improve her pain control in this chronic pain and opioid patient who likely has compromise pain tolerance. She also refuses to have her burrows catheter removed this morning "because I pee all the time." I told her that it is an infection risk but she replies "I have never had an infection due to a catheter." I compromised with her and we will plan to remove it tomorrow morning although she remains resistant to this and wants to keep it in. I told her that we need to remove it before she's able to go home but she didn't seem interested in my rationale. Increase activity. She's been very resistant to working with PT/OT and very resistant to efforts at getting her up to ambulate. I reinforced to her that she needs to get up and walk around with staff today. We can transfer her to Med/Surg today if they have a bed for her there. She may require inpatient rehab after discharge. 03/07/18: POD#4. Doing well. Will d/c burrows this morning. Tolerating diet. Increase activity, continue PT/OT. D/C planning. Will remove GLORIA this afternoon. (2) Bowel obstruction Status: Resolved Assessment & Plan: Patient is in tenuous condition physiologically although her bowel obstruction is now relieved. 03/03/191929 Patient has improved markedly through the day as I have visited her at least 4 times with good MAPs, improved urine output, drop of her lactate to 1.8, acceptable urine output. Continue ICU. I have discussed her situation with both the outgoing and incoming nurse. Continue mefoxin. Await blood cultures. I did discuss COR status with the patient's son who advises the patient's wishes are for no CPR or intubation. Drugs are acceptable. 03/04/18924: When patient seen this morning, she was starting to have more bowel function. Will consider starting clear liquid sips later today if she is able to wean off her BiPAP somewhat and if she continues to have evidence of returning bowel function. (3) Diabetes Status: Chronic Assessment & Plan: Patient is fairly well controlled with glucoses in the low 100s and low dose sliding scale insulin ordered as needed 03/04/18925: Patient had slightly more elevated glucoses during the night. Continue to check accu-checks. Once she stabilizes more and starts taking POs adequately, resume regular home medications. (4) Obstructive sleep apnea (adult) (pediatric) Status: Chronic Assessment & Plan: Patient is requiring BIPAP to maintain her oxygenation. Check ABG CXR with possible pleural effusion but no evidence of infiltrate. Continue support with BIPAP/oxygen 03/04/18 0935: Patient's CXR is unchanged with possible pleural effusion or consolidation. Continue support with BiPAP/oxygen. Mobilize today. (5) Chronic wound of extremity Status: Chronic Assessment & Plan: open wound known at admission after prior visit to ED two days ago. Continue local wound care daily while in hospital. Resume doxycycline when patient able to take POs. 03/04/18 0928: Dressing change was performed yesterday and will be performed tomorrow. PT involved in wound care for the small toe (had been involved previously when she presented to ED another time last week). Patient possibly has osteomyelitis of the small toe with bone exposed in the wound. (6) Hypokalemia Status: Resolved Assessment & Plan: replete intravenously and follow K+ levels while she is in the hospital. (7) Sepsis Status: Resolved Assessment & Plan: Monitoring closely. The patient has no overt source when carefully examined including inside her abdomen, urine and CXR Her lactate is 2.2 which will be rechecked at noon after further resuscitation. I will continue her perioperative antibiotics until a source is found or the patient improves. If her condition is not significantly better before this evening, I will place a central line. Continue to monitor during the day closely. 03/04/18 0937: Patient is doing much better. Only significant possibility for infection source seems to be right #5 open toe wound but this is without gross purulence or cellulitis. WBCs normal today as is lactate. Blood pressures improved. Decrease intravenous fluids as tolerated. Weight unchanged and urine output acceptable. Condition Stable. Time Spent: < 30 min Exam Sepsis Risk: No Definite Risk Problem Qualifiers (1) Bowel obstruction: Intestinal obstruction type: unspecified Intestinal obstruction extent: compl ete Qualified Codes: K56.601 - Complete intestinal obstruction, unspecified as to cause (2) Diabetes: Diabetes mellitus type: type 2 Diabetes mellitus bed bug exterminator insulin use: without bed bug exterminator use Diabetes mellitus complication status: without complication Qualified Codes: E11.9 - Type 2 diabetes mellitus without complications (3) Sepsis: Sepsis type: sepsis due to unspecified organism Qualified Codes: A41.9 - Sepsis, unspecified organism VANDANA SAMANO MD Mar 07, 2018 06:54
[2018-03-07] MEDS ORDERED: CYANOCOBALAMIN 1000MCG/ML VIAL IM ONLY ONE (09:00)
[2018-03-07] MEDS: HEPARIN (PORC) 5000 UN/ML VIAL SC SCH ×2 (10:01→21:33)
[2018-03-07] MEDS: SPIRONOLACTONE 25 MG TAB PO SCH ×2 (10:02→16:01)
[2018-03-07] MEDS: POTASSIUM CHL 20 MEQ TABCR PO SCH (10:02)
[2018-03-07] MEDS: MORPHINE 60 MG PO SCH ×2 (10:02→21:32)
[2018-03-07] MEDS: metFORMIN HCL 500 MG TAB PO SCH ×2 (10:02→16:00)
[2018-03-07] MEDS: TRIMETH/SULFA DS 160-800MG TAB PO SCH ×2 (10:03→21:33)
[2018-03-07] MEDS: MULTIVITAMINS TAB PO SCH (10:03)
[2018-03-07] MEDS: FUROSEMIDE 40 MG TAB PO SCH (10:03)
[2018-03-07 11:22] VITALS: BP 121/84
[2018-03-07] MEDS: MAGNESIUM OXIDE 400 MG TAB PO SCH (11:36)
[2018-03-07] MEDS: CHOLECALCIFEROL 1000 UNIT TAB PO SCH (11:36)
[2018-03-07] MEDS: ONDANSETRON 4 MG/2 ML VIAL IVP PRN ×2 (13:46→18:19)
[2018-03-07 15:29] VITALS: BP 135/80
[2018-03-07 20:02] VITALS: BP 135/80
[2018-03-07 20:05] VITALS: BP 102/66
[2018-03-07] MEDS: traZODone HCL 50 MG TAB PO SCH (21:33)
[2018-03-07] MEDS: LORATADINE 10 MG TAB PO SCH (21:33)
[2018-03-07] MEDS: TOPIRAMATE 100 MG TAB PO SCH (21:33)
[2018-03-07] MEDS: ATENOLOL 25 MG TAB PO SCH (21:33)
[2018-03-07] MEDS: ESCITALOPRAM OXALATE 10 MG TAB PO SCH (21:35)
[2018-03-07] MEDS: FLUTICASONE PROP 0.05% 16 GM SCH (21:36)
[2018-03-07 23:45] VITALS: BP 108/64
[2018-03-08] MEDS: oxyCODONE HCL 5 MG CAP PO PRN ×4 (01:59→23:42)
[2018-03-08 04:15] VITALS: BP 90/56
[2018-03-08] MEDS: LEVOTHYROXINE SOD 0.150 MG TAB PO SCH (06:04)
--- NOTE | 2018-03-08 07:14 | General Surgery Progress Note ---
Subjective Progress Notes Subjective C/O abdominal pain Physical Exam Vital Signs Date Time Temp Pulse Resp B/P (MAP) Pulse Ox O2 Delivery O2 Flow Rate FiO2 03/08/18 04:15 98.0 79 14 90/56 (67) 94 CPAP 2.0 03/06/18 05:34 25.0 Intake and Output 03/08/18 06:59 Intake Total 360 ml Output Total 1345 ml Balance -985 ml Intake Oral 360 ml Output Urine Total 1300 ml Drainage Total 45 ml # Voids 8 # Bowel Movements 5 General Appearance: Alert, Awake, No Acute Distress, Afebrile GI: Other (Soft, appropriate postop TTP, incisions look good without erythema or drainage. Drain with serosanguinous drainage, 20mL overnight.) Extremities: Warm, Perfused, Other (Right foot, small toe inspected. Mild erythema on dorsum, o/w looks good.) Result Diagram: 03/07/18 0631 03/07/18 0523 Monitor Interpretation: Atrial Fibrillation Assessment and Plan Problems: (1) Incarcerated right inguinal hernia Status: Resolved Assessment & Plan: Patient S/P exploratory laparotomy to reduce incarcerated inguinal hernia, (R)IH repair with mesh 03/02 into 03/03: Patient is guarded. Bowel was entirely viable at operation without any suspicious areas observed at surgery and no purulence, perforation or enterotomy. Abdominal binder, mobilize as tolerated, IS if off BIPAP. 03/04/18 0923: Patient is doing better today with improved blood pressure and complaining of abdominal pain. We will gingerly start pain medications. Mobilize. PT for ambulation as tolerated. 03/05/18: POD#2 s/p incarcerated RIH repair. Doing well. Passing BMs and flatus. Will start clear diet. Start PT/OT today. Wean off BIPAP, she is apparently insisting that she wear it even during daytime but I need to see how she's ventilating/oxygenating during the daytime with only O2 via nasal canula. If she does well with this then we can transfer her to med/surg later today or tomorrow. 03/06/18: POD#3. Doing well. Very emotional and very pain sensitive. Will start regular diet and restart her regular home medications which will hopefully improve her pain control in this chronic pain and opioid patient who likely has compromise pain tolerance. She also refuses to have her burrows catheter removed this morning "because I pee all the time." I told her that it is an infection risk but she replies "I have never had an infection due to a catheter." I compromised with her and we will plan to remove it tomorrow morning although she remains resistant to this and wants to keep it in. I told her that we need to remove it before she's able to go home but she didn't seem interested in my rationale. Increase activity. She's been very resistant to working with PT/OT and very resistant to efforts at getting her up to ambulate. I reinforced to her that she needs to get up and walk around with staff today. We can transfer her to Med/Surg today if they have a bed for her there. She may require i npatient rehab after discharge. 03/07/18: POD#4. Doing well. Will d/c burrows this morning. Tolerating diet. Increase activity, continue PT/OT. D/C planning. Will remove GLORIA this afternoon. 03/08/18: POD#5. Doing well. Will remove GLORIA this afternoon depending on output. Continue PT/OT, etc. (2) Bowel obstruction Status: Resolved Assessment & Plan: Patient is in tenuous condition physiologically although her bowel obstruction is now relieved. 03/03/191929 Patient has improved markedly through the day as I have visited her at least 4 times with good MAPs, improved urine output, drop of her lactate to 1.8, acceptable urine output. Continue ICU. I have discussed her situation with both the outgoing and incoming nurse. Continue mefoxin. Await blood cultures. I did discuss COR status with the patient's son who advises the patient's wishes are for no CPR or intubation. Drugs are acceptable. 03/04/18924: When patient seen this morning, she was starting to have more bowel function. Will consider starting clear liquid sips later today if she is able to wean off her BiPAP somewhat and if she continues to have evidence of returning bowel function. (3) Diabetes Status: Chronic Assessment & Plan: Patient is fairly well controlled with glucoses in the low 100s and low dose sliding scale insulin ordered as needed 03/04/18925: Patient had slightly more elevated glucoses during the night. Continue to check accu-checks. Once she stabilizes more and starts taking POs adequately, resume regular home medications. (4) Obstructive sleep apnea (adult) (pediatric) Status: Chronic Assessment & Plan: Patient is requiring BIPAP to maintain her oxygenation. Check ABG CXR with possible pleural effusion but no evidence of infiltrate. Continue support with BIPAP/oxygen 03/04/18 0935: Patient's CXR is unchanged with possible pleural effusion or consolidation. Continue support with BiPAP/oxygen. Mobilize today. (5) Chronic wound of extremity Status: Chronic Assessment & Plan: open wound known at admission after prior visit to ED two days ago. Continue local wound care daily while in hospital. Resume dox ycycline when patient able to take POs. 03/04/18 0928: Dressing change was performed yesterday and will be performed tomorrow. PT involved in wound care for the small toe (had been involved previously when she presented to ED another time last week). Patient possibly has osteomyelitis of the small toe with bone exposed in the wound. 03/08/18: Wound inspected. Very mild erythema. Pt reports it is being cared for by oncology specialist in [place] and they are trying to get it to heal without amputation. Will follow closely for infection. If it becomes infected, it may require amputation. Continue wound care. (6) Hypokalemia Status: Resolved Assessment & Plan: replete intravenously and follow K+ levels while she is in the hospital. (7) Sepsis Status: Resolved Assessment & Plan: Monitoring closely. The patient has no overt source when carefully examined including inside her abdomen, urine and CXR Her lactate is 2.2 which will be rechecked at noon after further resuscitation. I will continue her perioperative antibiotics until a source is found or the patient improves. If her condition is not significantly better before this evening, I will place a central line. Continue to monitor during the day closely. 03/04/18 0937: Patient is doing much better. Only significant possibility for infection source seems to be right #5 open toe wound but this is without gross purulence or cellulitis. WBCs normal today as is lactate. Blood pressures improved. Decrease intravenous fluids as tolerated. Weight unchanged and urine output acceptable. Condition Stable. Time Spent: < 30 min Exam Sepsis Risk: No Definite Risk Problem Qualifiers (1) Bowel obstruction: Intestinal obstruction type: unspecified Intestinal obstruction extent: complete Qualified Codes: K56.601 - Complete intestinal obstruction, unspecified as to cause (2) Diabetes: Diabetes mellitus type: type 2 Diabetes mellitus manager terminal insulin use: without manager terminal use Diabetes mellitus complication status: without complica tion Qualified Codes: E11.9 - Type 2 diabetes mellitus without complications (3) Sepsis: Sepsis type: sepsis due to unspecified organism Qualified Codes: A41.9 - Sepsis, unspecified organism VANDANA SAMANO MD Mar 08, 2018 07:14
[2018-03-08 07:29] VITALS: BP 108/58
[2018-03-08] MEDS: SPIRONOLACTONE 25 MG TAB PO SCH ×2 (07:59→16:16)
[2018-03-08] MEDS: metFORMIN HCL 500 MG TAB PO SCH ×2 (08:00→16:16)
[2018-03-08] MEDS: MORPHINE 60 MG PO SCH ×2 (08:35→21:01)
[2018-03-08] MEDS: TRIMETH/SULFA DS 160-800MG TAB PO SCH ×2 (08:35→21:00)
[2018-03-08] MEDS: MULTIVITAMINS TAB PO SCH (08:35)
[2018-03-08] MEDS: HEPARIN (PORC) 5000 UN/ML VIAL SC SCH ×2 (08:35→21:00)
[2018-03-08] MEDS: FUROSEMIDE 40 MG TAB PO SCH (08:35)
[2018-03-08] MEDS: POTASSIUM CHL 20 MEQ TABCR PO SCH (08:35)
[2018-03-08] MEDS: ONDANSETRON 4 MG/2 ML VIAL IVP PRN ×2 (09:02→18:13)
[2018-03-08 11:29] VITALS: BP 113/69
[2018-03-08] MEDS: CHOLECALCIFEROL 1000 UNIT TAB PO SCH (11:32)
[2018-03-08] MEDS: MAGNESIUM OXIDE 400 MG TAB PO SCH (11:32)
[2018-03-08 14:37] VITALS: BP 101/70
[2018-03-08 20:25] VITALS: BP 102/63
[2018-03-08] MEDS: ATENOLOL 25 MG TAB PO SCH (21:00)
[2018-03-08] MEDS: LORATADINE 10 MG TAB PO SCH (21:01)
[2018-03-08] MEDS: traZODone HCL 50 MG TAB PO SCH (21:01)
[2018-03-08] MEDS: TOPIRAMATE 100 MG TAB PO SCH (21:01)
[2018-03-08] MEDS: ESCITALOPRAM OXALATE 10 MG TAB PO SCH (21:02)
[2018-03-09 00:10] VITALS: BP 112/69
[2018-03-09] MEDS: FLUTICASONE PROP 0.05% 16 GM SCH (00:23)
[2018-03-09 04:24] VITALS: BP 118/76
[2018-03-09] MEDS: LEVOTHYROXINE SOD 0.150 MG TAB PO SCH (05:58)
[2018-03-09] MEDS: oxyCODONE HCL 5 MG CAP PO PRN (05:59)
--- NOTE | 2018-03-09 07:45 | Short(Outpt) Discharge Summary ---
Discharge Summary Reason for Hosp/Final Diag: (1) Incarcerated right inguinal hernia Status: Resolved Hospital Course & Plan: Patient S/P exploratory laparotomy to reduce incar cerated inguinal hernia, (R)IH repair with mesh 03/02 into 03/03: Patient is guarded. Bowel was entirely viable at operation without any suspicious areas observed at surgery and no purulence, perforation or enterotomy. Abdominal binder, mobilize as tolerated, IS if off BIPAP. 03/04/18 0923: Patient is doing better today with improved blood pressure and complaining of abdominal pain. We will gingerly start pain medications. Mobilize. PT for ambulation as tolerated. 03/05/18: POD#2 s/p incarcerated RIH repair. Doing well. Passing BMs and flatus. Will start clear diet. Start PT/OT today. Wean off BIPAP, she is apparently insisting that she wear it even during daytime but I need to see how she's ventilating/oxygenating during the daytime with only O2 via nasal canula. If she does well with this then we can transfer her to med/surg later today or tomorrow. 03/06/18: POD#3. Doing well. Very emotional and very pain sensitive. Will start regular diet and restart her regular home medications which will hopefully improve her pain control in this chronic pain and opioid patient who likely has compromise pain tolerance. She also refuses to have her burrows catheter removed this morning "because I pee all the time." I told her that it is an infection risk but she replies "I have never had an infection due to a catheter." I compromised with her and we will plan to remove it tomorrow morning although she remains resistant to this and wants to keep it in. I told her that we need to remove it before she's able to go home but she didn't seem interested in my rationale. Increase activity. She's been very resistant to working with PT/OT and very resistant to efforts at getting her up to ambulate. I reinforced to her that she needs to get up and walk around with staff today. We can transfer her to Med/Surg today if they have a bed for her there. She may require inpatient rehab after discharge. 03/07/18: POD#4. Doing well. Will d/c burrows this morning. Tolerating diet. Increase activity, continue PT/OT. D/C planning. Will remove GLORIA this afternoon. 03/08/18: POD#5. Doing well. Will remove GLORIA this afternoon depending on output. Continue PT/OT, etc. 03/09/18: POD#6. Doing well. Transfer to [facility] for continued PT/OT. Continue wound care to right 5th toe wound. [place] and retention sutures out in 1 week (2 weeks after surgery). (2) Bowel obstruction Status: Resolved Hospital Course & Plan: Patient is in tenuous condition physiologically althou gh her bowel obstruction is now relieved. 03/03/191929 Patient has improved markedly through the day as I have visited her at least 4 times with good MAPs, improved urine output, drop of her lactate to 1.8, acceptable urine output. Continue ICU. I have discussed her situation with both the outgoing and incoming nurse. Continue mefoxin. Await blood cultures. I did discuss COR status with the patient's son who advises the patient's wishes are for no CPR or intubation. Drugs are acceptable. 03/04/18924: When patient seen this morning, she was starting to have more bowel function. Will consider starting clear liquid sips later today if she is able to wean off her BiPAP somewhat and if she continues to have evidence of returning bowel function. (3) Diabetes Status: Chronic Hospital Course & Plan: Patient is fairly well controlled with glucoses in the low 100s and low dose sliding scale insulin ordered as needed 03/04/18925: Patient had slightly more elevated glucoses during the night. Continue to check accu-checks. Once she stabilizes more and starts taking POs adequately, resume regular home medications. (4) Obstructive sleep apnea (adult) (pediatric) Status: Chronic Hospital Course & Plan: Patient is requiring BIPAP to maintain her oxygenation. Check ABG CXR with possible pleural effusion but no evidence of infiltrate. Continue support with BIPAP/oxygen 03/04/1835: Patient's CXR is unchanged with possible pleural effusion or consolidation. Continue support with BiPAP/oxygen. Mobilize today. (5) Chronic wound of extremity Status: Chronic Hospital Course & Plan: open wound known at admission after prior visit to ED two days ago. Continue local wound care daily while in hospital. Resume doxycycline when patient able to take POs. 03/04/1828: Dressing change was performed yesterday and will be performed tomorrow. PT involved in wound care for the small toe (had been involved previously when she presented to ED another time last week). Patient possibly has osteomyelitis of the small toe with bone exposed in the wound. 03/08/18: Wound inspected. Very mild erythema. Pt reports it is being cared for by industrial automation specialist in [place] and they are trying to get it to heal without amputation. Will follow closely for infection. If it becomes infected, it may require amputation. Continue wound care. (6) Hypokalemia Status: Resolved Hospital Course & Plan: replete intravenously and follow K+ levels while she is in the hospital. (7) Sepsis Status: Resolved Hospital Course & Plan: Monitoring closely. The patient has no overt source when carefully examined including inside her abdomen, urine and CXR Her lactate is 2.2 which will be rechecked at noon after further resuscitation. I will continue her perioperative antibiotics until a source is found or the patient improves. If her condition is not significantly better before this evening, I will place a central line. Continue to monitor during the day closely. 03/04/18 0937: Patient is doing much better. Only significant possibility for infection source seems to be right #5 open toe wound but this is without gross purulence or cellulitis. WBCs normal today as is lactate. Blood pressures improved. Decrease intravenous fluids as tolerated. Weight unchanged and urine output acceptable. Departure Discharge to: [facility] Discharge Instructions Home Meds Active Scripts Doxycycline Hyclate (DOXYCYCLINE HYCLATE) 100 Mg Tablet, 100 MG PO BID for 10 Days, #20 TAB 0 Refills Prov:YELENA BARRETT SORTER PACKER-BC 02/28/18 Reported Medications Cyanocobalamin (Vitamin B-12) (CYANOCOBALAMIN INJECTION) 1,000 Mcg/1 Ml Vial, 1000 MCG IM monthly, VIAL 03/03/18 Loratadine (LORATADINE) 10 Mg Tablet, 10 MG PO Q HS 03/03/18 Cholecalciferol (Vitamin D3) (VITAMIN D3) 5,000 Unit Tablet, 5000 UNIT PO Q noon 03/03/18 Levothyroxine Sodium (LEVOTHYROXINE SODIUM) 150 Mcg Tablet, 150 MCG PO QDAY 03/03/18 Diphenhydramine Hcl (BENADRYL) 25 Mg Capsule, 25 MG PO Q6-8H PRN for ITCHING, CAPSULE 02/28/18 Ammonium Lactate/Emu Oil (EMU-LAC HYDRATING CREAM) 120 Ml Cream.ml., 120 ML TP QDAY PRN for RASH 02/28/18 Docusate Sodium (COLACE) 100 Mg Capsule, 100 MG PO BID PRN for CONSTIPATION, CAPSULE 02/28/18 Multivitamin With Minerals (MULTIPLE VITAMIN) 1 Each Tablet, 1 EACH PO QDAY, TAB 02/28/18 Ondansetron Hcl (ONDANSETRON HCL) 4 Mg Tablet, 4 MG PO Q6H PRN for NAUSEA 02/28/18 Sumatriptan Succinate (SUMATRIPTAN SUCCINATE) 25 Mg Tablet, 25 MG PO BID PRN for migraine 02/28/18 Diclofenac Sodium 1% Gel (VOLTAREN 1% GEL) 100 Gm Gel..gram., TOP PRN 4 g per side up to 4x/day = 32g 02/28/18 Triamcinolone Acetonide 0.1% Oint 15 Gm Tube (TRIAMCINOLONE ACETONIDE 0.1% 15 GM TUBE) 15 Gm Oint...g., TOP PRN 02/28/18 Miconazole Nitrate (MICRO-GUARD) 85 Gm Powder, TOP TID PRN for anti fungal 02/28/18 Fluticasone Prop 50 Mcg Ns (FLONASE 50 MCG NS) 16 Gm [place].susp, 2 SPR INH QHS 02/28/18 Ferrous Sulfate (FEOSOL) 325 Mg Tablet, 325 MG PO Qnoon 02/28/18 Escitalopram Oxalate (ESCITALOPRAM OXALATE) 10 Mg Tablet, 15 MG PO HS 02/28/18 Trazodone Hcl (TRAZODONE HCL) 50 Mg Tablet, 50 MG PO HS 02/28/18 Magnesium Oxide (MAG-OXIDE) 400 Mg Tablet, 400 MG PO Q noon 02/28/18 Topiramate (TOPIRAMATE) 200 Mg Tablet, 200 MG PO HS 02/28/18 Spironolactone (SPIRONOLACTONE) 50 Mg Tablet, 50 MG PO BID 02/28/18 Atenolol (ATENOLOL) 25 Mg Tablet, 25 MG PO HS 02/28/18 Famotidine (FAMOTIDINE) 20 Mg Tablet, 20 MG PO QHS 02/28/18 Morphine Sulfate (MORPHINE SULFATE ER) 60 Mg Tablet.er, 60 PO BID for PAIN 02/28/18 Metformin Hcl (METFORMIN HCL) 500 Mg Tablet, 1 TAB PO BID, TAB 02/28/18 Furosemide (LASIX) 40 Mg Tablet, 1 TAB PO QDAY, TAB 02/28/18 Potassium Chloride (POTASSIUM CHLORIDE) 20 Meq Tab.er.prt, 20 MEQ PO QDAY 02/28/18 Oxycodone Hcl 10 Mg Tab (OXYCODONE HCL 10 MG TAB) 10 Mg Tablet, 10 MG PO Q6H PRN for PAIN, TAB 02/28/18 Discontinued Reported Medications Cyanocobalamin (Vitamin B-12) (Vitamin B-12) 1,000 Mcg Capsule, Q30D 02/28/18 Cholecalciferol (Vitamin D3) (VITAMIN D3) 1,000 Unit Tablet, 5000 UNIT PO QDAY, TAB 02/28/18 Risperidone (RISPERIDONE) 0.5 Mg Tablet, 0.5 MG PO QDAY 02/28/18 Levothyroxine Sodium (LEVOTHYROXINE SODIUM) 50 Mcg Tablet, 50 MCG PO QDAY, TAB 02/28/18 Levothyroxine Sodium (LEVOTHYROXINE SODIUM) 100 Mcg Tablet, 100 MCG PO QDAY, TAB 02/28/18 Diet: Diabetic Activity: No Heavy Lifting Problem Qualifiers (1) Bowel obstruction: Intestinal obstruction type: unspecified Intestinal obstruction extent: complete Qualified Codes: K56.601 - Complete intestinal obstruction, unspecified as to cause (2) Diabetes: Diabetes mellitus type: type 2 Diabetes mellitus residential insulin use: without residential use Diabetes mellitus complication status: without complication Qualified Codes: E11.9 - Type 2 diabetes mellitus without complications (3) Sepsis: Sepsis type: sepsis due to unspecified organism Qualified Codes: A41.9 - Sepsis, unspecified organism VANDANA SAMANO MD Mar 09, 2018 07:45
[2018-03-09 08:14] VITALS: BP 123/76
[2018-03-09] MEDS: MULTIVITAMINS TAB PO SCH (08:21)
[2018-03-09] MEDS: MORPHINE 60 MG PO SCH (08:21)
[2018-03-09] MEDS: POTASSIUM CHL 20 MEQ TABCR PO SCH (08:21)
[2018-03-09] MEDS: FUROSEMIDE 40 MG TAB PO SCH (08:21)
[2018-03-09] MEDS: TRIMETH/SULFA DS 160-800MG TAB PO SCH (08:21)
[2018-03-09] MEDS: metFORMIN HCL 500 MG TAB PO SCH (08:22)
[2018-03-09] MEDS: HEPARIN (PORC) 5000 UN/ML VIAL SC SCH (08:22)
[2018-03-09] MEDS: SPIRONOLACTONE 25 MG TAB PO SCH (08:22)
== END 2018-03-09 10:30 | DRG 350 ==
LOC: ER 15:47 → OR 21:43 → ICU 03-03 03:20 → MED 03-06 10:10
PROVIDERS: ADMIT Surgery; ATTEND Surgery
PROC: 0YU50JZ Supplement Right Inguinal Region with Synthetic Substitute, Open Approach (ICD-10-PCS; principal; 2018-03-03)
PROC: 5A09457 Assistance with Respiratory Ventilation, 24-96 Consecutive Hours, Continuous Positive Airway Pressure (ICD-10-PCS; 2018-03-03)
DX: K40.30 Unilateral inguinal hernia, with obstruction, without gangrene, not specified as recurrent (principal); A41.9 Sepsis, unspecified organism; L97.516 Non-pressure chronic ulcer of other part of right foot with bone involvement without evidence of necrosis; M86.171 Other acute osteomyelitis, right ankle and foot; E11.621 Type 2 diabetes mellitus with foot ulcer; Z79.4 Long term (current) use of insulin; G47.33 Obstructive sleep apnea (adult) (pediatric); E87.6 Hypokalemia; Z98.84 Bariatric surgery status; Z88.0 Allergy status to penicillin; Z90.89 Acquired absence of other organs; Z90.49 Acquired absence of other specified parts of digestive tract; Z96.651 Presence of right artificial knee joint; I10 Essential (primary) hypertension; E03.9 Hypothyroidism, unspecified; Z97.3 Presence of spectacles and contact lenses; Z86.73 Personal history of transient ischemic attack (TIA), and cerebral infarction without residual deficits; Z95.0 Presence of cardiac pacemaker; Z96.641 Presence of right artificial hip joint; G89.29 Other chronic pain; E11.69 Type 2 diabetes mellitus with other specified complication; I48.2 Chronic atrial fibrillation
CPT/HCPCS: 36415; 36416; 71045; 74177; 81001; 82040; 82247; 82310; 82374; 82435; 82565; 82947; 82948; 83605; 83690; 83735; 84075; 84100; 84132; 84155; 84295; 84450; 84460; 84520; 85025; 86140; 87040; 88302; 93005; 94640; 94660; 96361; 96374; 96375; 97161; 97163; 97166; 99283; 99285; C1758; C1781; J0131; J0694; J1100; J1170; J1644; J1815; J1940; J2001; J2270; J2405; J2550; J2704; J2795; J3010; J3420; J3480; J3490; J7030; J7040; P9045; Q9967

== ENCOUNTER 2018-03-09 10:30 | Inpatient (IN) | payer MEDICARE, MEDICAID ==
[~2018-03-09] VITALS: Ht 144.8 cm; Wt 73.5 kg
[~2018-03-09 10:30] MED LIST changes: +CHOL500025 PO; +CYAN1000 IM; +LEVO150T78 PO; +LORA-629 PO
[2018-03-09 10:40] VITALS: BP 100/61
[2018-03-09] MEDS ORDERED: D5 1/2 NS(*) 1000 ML BAG 1,000 ML IV PRN (10:59)
[2018-03-09] MEDS ORDERED: POTASSIUM CHL 20 MEQ TABCR PO SCH (10:59)
[2018-03-09] MEDS ORDERED: SUMAtriptan SUCC 25MG TAB PO PRN (10:59)
[2018-03-09] MEDS ORDERED: hydrALAZINE HCL 20 MG/ML VIAL IVP PRN (10:59)
[2018-03-09] MEDS ORDERED: metFORMIN HCL 500 MG TAB PO SCH (10:59)
[2018-03-09] MEDS ORDERED: AMMONIUM LACTATE TP PRN (10:59)
[2018-03-09] MEDS ORDERED: diphenhydrAMINE 25 MG CAP PO PRN (10:59)
[2018-03-09] MEDS ORDERED: DOCUSATE SODIUM 100 MG CAP PO PRN (10:59)
[2018-03-09] MEDS ORDERED: INSULIN HUMAN REGULAR SLIDING SCALE SC PRN (10:59)
[2018-03-09] MEDS ORDERED: ONDANSETRON 4 MG TAB PO PRN (10:59)
--- NOTE | 2018-03-09 11:45 | Consultant Pharmacy Review ---
Dining Car Waiter/Waitress Review Other General Cautions * DiphenhydrAMINE (Systemic) (Anticholinergic Agents) Potassium Chloride Depends on Dosage Form X Loratadine (Anticholinergic Agents) Potassium Chloride Depends on Dosage Form D Aldactone (Potassium-Sparing Diuretics) Potassium Chloride (Potassium Salts) D DiphenhydrAMINE (Systemic) (RELIABILITY TECHNICIAN Depressants) MS Contin (Opioid Analgesics) D DiphenhydrAMINE (Systemic) (RELIABILITY TECHNICIAN Depressants) OxyCODONE D Levothyroxine Magnesium Oxide (Magnesium Salts) Depends on Route D Lexapro (QTc-Prolonging Agents (Moderate Risk)) Zofran (QTc-Prolonging Agents (Moderate Risk)) D Lexapro (Selective Serotonin Reuptake Inhibitors) TraZODone (Serotonin Reuptake Inhibitor/Antagonists) D Loratadine (RELIABILITY TECHNICIAN Depressants) MS Contin (Opioid Analgesics) D Loratadine (RELIABILITY TECHNICIAN Depressants) OxyCODONE D MS Contin (RELIABILITY TECHNICIAN Depressants) OxyCODONE D MS Contin (Opioid Analgesics) Topamax (RELIABILITY TECHNICIAN Depressants) D OxyCODONE Topamax (RELIABILITY TECHNICIAN Depressants) C Aldactone (Blood Pressure Lowering Agents) MS Contin (Hypotension-Associated Agents) C Aldactone (Diuretics) MS Contin (Opioid Analgesics) C Aldactone (Diuretics) OxyCODONE (Opioid Analgesics) C Aldactone (Potassium-Sparing Diuretics) Heparin Depends on International labeling C Aldactone (Spironolactone) Bactrim (Trimethoprim) C Apresoline (CAN) (Blood Pressure Lowering Agents) MS Contin (Hypotension- Associated Agents) C Bactrim (Blood Glucose Lowering Agents) Lexapro (Selective Serotonin Reuptake Inhibitors) C Bactrim (Hypoglycemia-Associated Agents) HumuLIN R [OTC] (Antidiabetic Agents) C Bactrim (Hypoglycemia-Associated Agents) HumuLIN R [OTC] (Hypoglycemia- Associated Agents) C Bactrim (Trimethoprim) MetFORMIN C DiphenhydrAMINE (Systemic) (Anticholinergic Agents) Loratadine (Anticholinergic Agents) C DiphenhydrAMINE (Systemic) (Anticholinergic Agents) Topamax (Topiramate) C DiphenhydrAMINE (Systemic) (RELIABILITY TECHNICIAN Depressants) Lexapro (Selective Serotonin Reuptake Inhibitors) C DiphenhydrAMINE (Systemic) (RELIABILITY TECHNICIAN Depressants) Loratadine (RELIABILITY TECHNICIAN Depressants) C Heparin Potassium Chloride (Potassium Salts) C Heparin (Anticoagulants) Lexapro (Agents with Antiplatelet Properties) Depends on International labeling C HumuLIN R [OTC] (Antidiabetic Agents) Lasix (Hyperglycemia-Associated Agents) C HumuLIN R [OTC] (Blood Glucose Lowering Agents) Lexapro (Selective Serotonin Reuptake Inhibitors) C HumuLIN R [OTC] (Hypoglycemia-Associated Agents) MetFORMIN (Antidiabetic Agents) C HumuLIN R [OTC] (Insulins) Tenormin (Beta-Blockers) C Lasix (Blood Pressure Lowering Agents) MS Contin (Hypotension-Associated Agents) C Lasix (Diuretics) MS Contin (Opioid Analgesics) C Lasix (Diuretics) OxyCODONE (Opioid Analgesics) C Lasix (Hyperglycemia-Associated Agents) MetFORMIN (Antidiabetic Agents) C Lasix (Loop Diuretics) Topamax (Topiramate) C Levothyroxine (Thyroid Products) Lexapro (Selective Serotonin Reuptake Inhibitors) C Lexapro (Selective Serotonin Reuptake Inhibitors) Loratadine (RELIABILITY TECHNICIAN Depressants) C Lexapro (Selective Serotonin Reuptake Inhibitors) MetFORMIN (Blood Glucose Lowering Agents) C Lexapro (Selective Serotonin Reuptake Inhibitors) MS Contin (RELIABILITY TECHNICIAN Depressants) C Lexapro (Selective Serotonin Reuptake Inhibitors) OxyCODONE (RELIABILITY TECHNICIAN Depressants) C Lexapro (Selective Serotonin Reuptake Inhibitors) Topamax (RELIABILITY TECHNICIAN Depressants) C Lexapro (Serotonin Modulators) MS Contin (Opioid Analgesics) C Lexapro (Serotonin Modulators) OxyCODONE (Opioid Analgesics) C Lexapro (Serotonin Modulators) SUMAtriptan (Serotonin Modulators) C Loratadine (Anticholinergic Agents) Topamax (Topiramate) C MetFORMIN Topamax (Topiramate) Depends on Laboratory/Diagnostic Result C MetFORMIN Zofran (Ondansetron) C MS Contin (Hypotension-Associated Agents) Tenormin (Blood Pressure Lowering Agents) C MS Contin (Opioid Analgesics) SUMAtriptan (Serotonin Modulators) C MS Contin (Opioid Analgesics) TraZODone (Serotonin Modulators) C OxyCODONE (Opioid Analgesics) SUMAtriptan (Serotonin Modulators) C OxyCODONE (Opioid Analgesics) TraZODone (Serotonin Modulators) C SUMAtriptan (Serotonin Modulators) TraZODone (Serotonin Modulators) C SUMAtriptan (Serotonin Modulators) Zofran (Antiemetics (5HT3 Antagonists)) C TraZODone (QTc-Prolonging Agents (Indeterminate Risk and Risk Modifying)) Zofran (QTc-Prolonging Agents (Moderate Risk)) C TraZODone (Serotonin Modulators) Zofran (Antiemetics (5HT3 Antagonists)) B Lasix (Furosemide) Levothyroxine (Thyroid Products) Depends on Dose * Lexapro TraZODone MS Contin OxyCODONE * Disclaimer: Readers are advised that decisions regarding drug therapy must be based on the independent judgment of the clinician, changing information about a drug (eg, as reflected in the literature and shampoo person's most current product information), and changing medical practices. * Terms & Conditions // * Disclaimer// * Privacy Policy * [employer] on Intro[employer] * [employer] on Twitter * Get Adobe [place] 2018 [employer] and its affiliates and/or licensors. All Rights Reserved. * Top of Form 1 * Bottom of Form 1 DOMINIC CONNORS Mar 09, 2018 11:45
[2018-03-09] MEDS: MAGNESIUM OXIDE 400 MG TAB PO SCH (13:01)
[2018-03-09] MEDS: oxyCODONE HCL 5 MG CAP PO PRN (13:01)
[2018-03-09] MEDS: CHOLECALCIFEROL 1000 UNIT TAB PO SCH (13:02)
[2018-03-09] MEDS: ONDANSETRON 4 MG/2 ML VIAL IVP PRN (13:58)
--- NOTE | 2018-03-09 14:09 | OT ECF NOTE ---
Type of Note: Initial Note Primary Medical Diagnosis: SBO Occupational Therapy Evaluation Date: 03/10/18 SUBJECTIVE: Prior Hospitalization: Pt. admitted to [facility] ICU/Medical/ Surgical Floor from 03/02/18 to 03/10/18 Prior Level of Function: Pt. was able to ambulate short distances at home donning a bike helmet and gait belt due to frequent falls. Pt. performs bed bathes at home and has been receiving [facility] care services for wound care. Prior Living Status: Single level house Living with family Assist by family Community Services: Home health detention Accessibility: One step into home (pt.'s son states that he perform w/c bumps up/down one step with Mom) All needs on one level Equipment Owned: Front wheeled walker Wheelchair, hospital bed, electric lift recliner, FWW Medical Complications/Past Medical History: Extensive medical history, please refer to chart for details. Psychosocial Support: Very supportive son, who is patients caregiver. Pain Scale (0-10): 5/10 in Right 5th toe OBJECTIVE: Strength: MMT: Right Left Shoulder Flexion [*] [*] Elbow Flexion [*] [*] Wrist Extension [*] [*] Director Medical [*] [*] (5= normal, 4= good, 3= fair, 2= poor, 1= trace) ROM: Both upper extremities Severly limited Functional Transfer: Assistive Device: Front wheeled walker Gait belt Transfer Ability: CGA ADL: Upper body dressing: Assistive device: Upper body dressing ability: N/T Lower body dressing: Assistive device: Lower body dressing ability: Total A Toileting: Assistive device: Toileting ability: Max-total A Grooming/hygiene: Assistive device: Grooming ability: N/T Bathing: Assistive device: Bathing ability: pt. performs bed bathes at home. Standardized Assessment: [place] Index of Activities of Daily Living- Pt. scored 9/20 on this Index on 03/10/18. ASSESSMENT: Pt. is a 67 year old female who was admitted with a SBO on 03/02/18. Pt. has a complex medical history with a current wound on her Right 5th toe requiring wound care prior to admission. Pt. currently resides in [place] with her 2 children who assist with caring for her. Pt. needs to be able to ambulate short distances with use of FWW in order to return to home. Problem List/Current Limitations: Short Term Goals: 1. Pt. to perform LB dressing with Mod A. 2. Pt. to perform toileting activities with Min A. 3. Pt. to improve Sobia Index of ADL score by 2 points. 4. Pt. to improve g/h activities with I. Senior Living Goals: Return to home with Care. Patient Goals: Return to home. Rehabilitation Prognosis: Fair Barriers to Discharge: Complex medial issues PLAN: The patient will benefit from skilled occupational therapy services 5 times per week for 2 weeks including: Ther ex ADL training Safety training Ther act IADL training Transfer training Adaptive equip training Bed mobility Thank you for this referral. If you have any questions, concerns, or comments about this report or plan, please contact me at . Aster Holden, OTR/L Occupational Therapist KYLER
--- NOTE | 2018-03-09 15:24 | PT ECF NOTE ---
Type of Note: Initial Note Primary Medical Diagnosis: Incarcerated R inguinal hernia s/p surgical intervention. Physical Therapy Evaluation Date: 03/09/2018 SUBJECTIVE: [facility]/03/2018 - 03/09/2018 Prior Level of Function: Pt's history provided by her son who is her caregiver while on Medical/Surgical unit. Subjective questions asked to Pt, however, she chose to defer to her son. Pt typically lives with her son in [place] but has been in [place] for the summer visiting her daughter with the son also here taking care of her. Pt's son reports Pt uses a wheelchair for community mobility and also he "bumps" her up/down stairs in the wheelchair. Pt has a hospital bed, lift chair, rollator walker. Pt's son states she typically uses a bicycle helmet for head protection during ambulation household distances due to frequent falls. Prior Living Status: Single level house, Living with family, Assist by family Community Services: Home health care, son is her caregiver Home Accessibility: stairs, All needs on one level Equipment Owned: Front wheeled walker, Wheelchair, hospital bed, lift chair Medical Complications/Past Medical History: extensive Psychosocial Support: supportive son who is her caregiver and daughter who they are currently staying with. Pain Scale (0-10): Pt reports abdominal pain and R 5th toe pain OBJECTIVE: Bed Mobility: not observed during this eval Assistive device: Transfers: CGA from elevated chair Assistive Device: Front wheeled walker Gait: CGA x 15' Assistive device: Front wheeled walker WOUND: Closed (with a scab) 4th toe medial wound. Right 5th Medial Toe Pressure Ulcer: Stage IV: approximately 0.5cm x 0.5cm with no measurable depth although bone is exposed. Dressing removed and dried drainage, calus, collagen dressing, and nonviable tissue debrided with tweezers and scissors with heathy tissue revealed. Assessed wound for packing with Ary Stevens PT consulting and we agree packing would not be possible due to lack of depth to pack into. Decided to discontinue collagen dressing as this is causing a "cap" and instead dressing wound with foam for both pressure relief and drainage management. No obvious signs and symptoms of infection present at this time. Foam placed between toes of both feet to decrease pressure of toes approximating each other. With nursing assist, lymphedema dressing applied to bilateral legs. ASSESSMENT: Pt presents with decreased independence with functional mobility prior to baseline. Pt will benefit from skilled PT for strengthening, functional mobility training, and wound care in order to return to prior level of function. Pt's son demonstrates competence in caring for his mother and does not require training/education at this time. Problem List/Current Limitations: Pain, Decreased activity tolerance, Decreased strength, Generalized weakness Short Term Goals: 1. SBA bed mobility with use of hospital bed features as Pt does have hospital bed at home. 2. SBA sit<>stand transfer. 3. Ambulation x 50' with RW and SBA. Mortgage Manager Goals: Return to prior living arrangements. Patient Goals: Return to prior living arrangements. Rehabilitation Prognosis: Fair Barriers for Discharge: None identified at this time. PLAN: The patient will benefit from skilled physical therapy services 5 times per week for 2 weeks including: Therapeutic Exercise, Therapeutic Activities, Transfer Training, Gait Training, Manual Therapy, ADL's, Safety Training, Neuromuscular Re-educ., Wound Care, Pt/Caregiver Training, Bed Mobility Thank you for this referral. If you have any questions, concerns, or comments about this report or plan, please contact me at . Margaret Kingston, PT, DPT, GCS MTDD
[2018-03-09 16:55] VITALS: BP 121/78
[2018-03-09] MEDS: SPIRONOLACTONE 25 MG TAB PO SCH ×2 (17:00→17:01)
[2018-03-09] MEDS: metFORMIN HCL 500 MG TAB PO SCH (17:01)
[2018-03-09] MEDS: FLUTICASONE PROP 0.05% 16 GM SCH (20:45)
[2018-03-09] MEDS: traZODone HCL 50 MG TAB PO SCH (20:46)
[2018-03-09] MEDS: TOPIRAMATE 100 MG TAB PO SCH (20:47)
[2018-03-09] MEDS: MORPHINE 60 MG PO SCH (20:47)
[2018-03-09] MEDS: ATENOLOL 25 MG TAB PO SCH (20:48)
[2018-03-09] MEDS: TRIMETH/SULFA DS 160-800MG TAB PO SCH (20:49)
[2018-03-09] MEDS: ESCITALOPRAM OXALATE 10 MG TAB PO SCH (20:50)
[2018-03-09] MEDS: LORATADINE 10 MG TAB PO SCH (20:50)
[2018-03-09] MEDS: HEPARIN (PORC) 5000 UN/ML VIAL SC SCH (20:51)
[2018-03-10] MEDS: oxyCODONE HCL 5 MG CAP PO PRN ×4 (01:49→22:51)
[2018-03-10] MEDS: LEVOTHYROXINE SOD 0.150 MG TAB PO SCH (08:42)
[2018-03-10 08:44] VITALS: BP 102/67
[2018-03-10] MEDS: MORPHINE 60 MG PO SCH ×2 (09:20→20:26)
[2018-03-10] MEDS: FUROSEMIDE 40 MG TAB PO SCH (09:21)
[2018-03-10] MEDS: metFORMIN HCL 500 MG TAB PO SCH ×2 (09:21→16:16)
[2018-03-10] MEDS: MULTIVITAMINS TAB PO SCH (09:22)
[2018-03-10] MEDS: SPIRONOLACTONE 25 MG TAB PO SCH ×2 (09:22→16:16)
[2018-03-10] MEDS: HEPARIN (PORC) 5000 UN/ML VIAL SC SCH ×2 (09:23→20:28)
[2018-03-10] MEDS: TRIMETH/SULFA DS 160-800MG TAB PO SCH ×2 (09:23→20:32)
[2018-03-10] MEDS: POTASSIUM CHL PWDR 20 MEQ PKT PO SCH (09:23)
[2018-03-10] MEDS ORDERED: INFLUENZA VIRUS VAC 0.5ML SYR IM ONLY ONE (10:00)
[2018-03-10] MEDS: MAGNESIUM OXIDE 400 MG TAB PO SCH (12:41)
[2018-03-10] MEDS: CHOLECALCIFEROL 1000 UNIT TAB PO SCH (12:42)
[2018-03-10 13:06] VITALS: Ht 144.8 cm; Wt 73.5 kg
[2018-03-10 14:45] VITALS: BP 116/68
[2018-03-10] MEDS: LORATADINE 10 MG TAB PO SCH (20:25)
[2018-03-10] MEDS: traZODone HCL 50 MG TAB PO SCH (20:26)
[2018-03-10] MEDS: ATENOLOL 25 MG TAB PO SCH (20:26)
[2018-03-10] MEDS: ESCITALOPRAM OXALATE 10 MG TAB PO SCH (20:27)
[2018-03-10] MEDS: TOPIRAMATE 100 MG TAB PO SCH (20:31)
[2018-03-10] MEDS: FLUTICASONE PROP 0.05% 16 GM SCH (20:32)
[2018-03-11] MEDS: LEVOTHYROXINE SOD 0.150 MG TAB PO SCH (05:46)
[2018-03-11] MEDS: oxyCODONE HCL 5 MG CAP PO PRN ×3 (05:46→20:55)
[2018-03-11 08:05] VITALS: BP 112/60
[2018-03-11] MEDS: TRIMETH/SULFA DS 160-800MG TAB PO SCH ×2 (08:15→20:57)
[2018-03-11] MEDS: POTASSIUM CHL PWDR 20 MEQ PKT PO SCH (08:15)
[2018-03-11] MEDS: FUROSEMIDE 40 MG TAB PO SCH (08:15)
[2018-03-11] MEDS: metFORMIN HCL 500 MG TAB PO SCH ×2 (08:15→17:32)
[2018-03-11] MEDS: SPIRONOLACTONE 25 MG TAB PO SCH ×2 (08:16→17:32)
[2018-03-11] MEDS: MULTIVITAMINS TAB PO SCH (08:16)
[2018-03-11] MEDS: MORPHINE 60 MG PO SCH ×2 (08:16→20:56)
[2018-03-11] MEDS: HEPARIN (PORC) 5000 UN/ML VIAL SC SCH ×2 (08:16→20:55)
[2018-03-11] MEDS: ONDANSETRON 4 MG/2 ML VIAL IVP PRN (09:48)
[2018-03-11] MEDS: CHOLECALCIFEROL 1000 UNIT TAB PO SCH (12:53)
[2018-03-11] MEDS: MAGNESIUM OXIDE 400 MG TAB PO SCH (12:53)
--- NOTE | 2018-03-11 14:49 | Medical Nutrition Therapy ---
Nutrition Anthropometrics Height (Inches): 57.00 Height (Calculated Centimeters: 144.909134 Weight (Pounds): 162 Weight (Calculated Kilograms): 73.709 BMI: 35.2 Deondre Nutrition Score: Probably Inadequate Deondre Nutrition Risk Score: 16 Dietary Referral Nutrition Risk Factors: Unplanned Loss >10lbs Nutrition Risk Comment: Physical Findings Physical Appearance: Obese BMI 30-39 Skin Appearance Skin Appearance: Edema Edema Location Modifier: Both Edema Location: Lower Extremity Type of Edema: Degree of Edema: Gastrointestinal Symptoms GI Symtoms: Nausea Tube Present: Bowel Sounds: Recent Bowel Pattern: Stool Characteristics: Nutrition/Food History Good Nutritional Diagnosis Nutritional Risk Acuity 2: Abcess/Non-Healing Wound Nutritional Risk Acuity 3: Fair Appetite Past Medical History: T2DM, gastric bypass, appendectomy, cholecystectomy, residual ventral hernia, bowel obstruction Nutritional Acuity: 2-Moderate Nutrition Diagnosis: Increased Nutrient Needs Nutrition Etiology: Physiological Causes Nutrition Problem/Etiology/Sym: Increased protein needs related to physiological causes as evidenced by open wound and need for wound healing. Energy Requirement: 1700 ([place]-St Jeor: Actual BW X 1.5) Protein Requirement: 73 (Actual BW Kg X 1.0) Fluid Requirement: 1700 Diet Type: Diabetic Nutrition Intervention: Cont diet as ordered, Check glucose Food Likes: white gatorade with sprite zero mixed together Nutrition Monitoring & Eval Nutrition Goals: Eat 50-100% Meal RD Patient Assessment Time: [address] Assessment Type: RD Screen Patient Nutrition Acuity: 2-Moderate Follow Up Date: Mar 13, 2018 Nutritional Comment: Pt originally admitted for SBO, incarcerated inguinal hernia, and open wound on toe. Transferred to [facility] for ongoing rehab. Class II obesity with BMI of 35.2. Glu 96, Low Ph and Ca. Metformin 500mg BID, Lispro SSI. Receiving Diabetic diet and consuming meals at 50-100%. Continue to monitor and encourage high protein intake. -MARIA ARVIZU Mar 11, 2018 14:48
[2018-03-11 15:38] VITALS: BP 100/65
[2018-03-11] MEDS: FLUTICASONE PROP 0.05% 16 GM SCH (20:55)
[2018-03-11] MEDS: LORATADINE 10 MG TAB PO SCH (20:55)
[2018-03-11] MEDS: traZODone HCL 50 MG TAB PO SCH (20:55)
[2018-03-11] MEDS: ESCITALOPRAM OXALATE 10 MG TAB PO SCH (20:56)
[2018-03-11] MEDS: TOPIRAMATE 100 MG TAB PO SCH (20:56)
[2018-03-11] MEDS: ATENOLOL 25 MG TAB PO SCH (20:56)
[2018-03-12] MEDS: oxyCODONE HCL 5 MG CAP PO PRN ×4 (04:15→22:43)
[2018-03-12] MEDS: LEVOTHYROXINE SOD 0.150 MG TAB PO SCH (06:14)
[2018-03-12 07:40] VITALS: BP 103/53
[2018-03-12] MEDS: metFORMIN HCL 500 MG TAB PO SCH ×2 (08:22→16:42)
[2018-03-12] MEDS: POTASSIUM CHL PWDR 20 MEQ PKT PO SCH (08:41)
[2018-03-12] MEDS: FUROSEMIDE 40 MG TAB PO SCH (08:41)
[2018-03-12] MEDS: MULTIVITAMINS TAB PO SCH (08:41)
[2018-03-12] MEDS: MORPHINE 60 MG PO SCH ×2 (08:41→21:13)
[2018-03-12] MEDS: HEPARIN (PORC) 5000 UN/ML VIAL SC SCH ×2 (08:45→21:13)
[2018-03-12] MEDS: TRIMETH/SULFA DS 160-800MG TAB PO SCH ×2 (08:45→21:13)
[2018-03-12] MEDS: SPIRONOLACTONE 25 MG TAB PO SCH ×2 (08:56→17:44)
[2018-03-12] MEDS: CHOLECALCIFEROL 1000 UNIT TAB PO SCH (12:30)
[2018-03-12] MEDS: MAGNESIUM OXIDE 400 MG TAB PO SCH (12:30)
--- NOTE | 2018-03-12 13:04 | Medical Nutrition Therapy ---
Nutrition Anthropometrics Height (Inches): 57.00 Height (Calculated Centimeters: 144.104995 Weight (Pounds): 162 Weight (Calculated Kilograms): 73.709 BMI: 35.2 Deondre Nutrition Score: Probably Inadequate Deondre Nutrition Risk Score: 16 Dietary Referral Nutrition Risk Factors: Unplanned Loss >10lbs Nutrition Risk Comment: Physical Findings Physical Appearance: Obese BMI 30-39 Skin Appearance Skin Appearance: Edema Edema Location Modifier: Both Edema Location: Lower Extremity Type of Edema: Degree of Edema: Gastrointestinal Symptoms GI Symtoms: Nausea Tube Present: Bowel Sounds: Recent Bowel Pattern: Stool Characteristics: Nutritional Diagnosis Nutritional Risk Acuity 2: Abcess/Non-Healing Wound Nutritional Risk Acuity 3: Fair Appetite Past Medical History: T2DM, gastric bypass, appendectomy, cholecystectomy, residual ventral hernia, bowel obstruction Nutritional Acuity: 2-Moderate Nutrition Diagnosis: Increased Nutrient Needs Nutrition Etiology: Physiological Causes Nutrition Problem/Etiology/Sym: Increased protein needs related to physiological causes as evidenced by open wound and need for wound healing. Energy Requirement: 1700 (Jerome-St Jeor: Actual BW X 1.5) Protein Requirement: 73 (Actual BW Kg X 1.0) Fluid Requirement: 1700 Diet Type: Diabetic Nutrition Intervention: Cont diet as ordered, Check glucose Drug: Diuretics Drug/Nutrition Recommendations: Check Serum K+ Food Likes: white gatorade with sprite zero mixed together Nutrition Monitoring & Eval RD Patient Assessment Time: [address] Assessment Type: RD Re-Assessment Patient Nutrition Acuity: 2-Moderate Follow Up Date: Mar 20, 2018 Nutritional Comment: Pt originally admitted for SBO, incarcerated inguinal hernia, and open wound on toe. Transferred to [facility] for ongoing rehab. Class II obesity with BMI of 35.2. Glu 96, Low Ph and Ca. Metformin 500mg BID, Lispro SSI. Receiving Diabetic diet and consuming meals at 50-100%. Continue to monitor and encourage high protein intake. -DRT 03/12. Pt cont on diabetic diet, consuming 50-100% of small and regular sized meals. Pt is receiving 1-5 units Humulin and 40 mg potassium depleting diuretic Q day. Reported on 03/11, pt whole BG wnl, 96. No potassium value available. No weight change idenitfied. Encourage intake, will cont to monitor. CEASAR TERRY Mar 12, 2018 08:38
[2018-03-12 17:00] VITALS: BP 103/62
[2018-03-12] MEDS: FLUTICASONE PROP 0.05% 16 GM SCH (21:12)
[2018-03-12] MEDS: TOPIRAMATE 100 MG TAB PO SCH (21:13)
[2018-03-12] MEDS: LORATADINE 10 MG TAB PO SCH (21:13)
[2018-03-12] MEDS: traZODone HCL 50 MG TAB PO SCH (21:13)
[2018-03-12] MEDS: ATENOLOL 25 MG TAB PO SCH (21:13)
[2018-03-12] MEDS: ESCITALOPRAM OXALATE 10 MG TAB PO SCH (21:13)
[2018-03-13] MEDS: LEVOTHYROXINE SOD 0.150 MG TAB PO SCH (06:00)
[2018-03-13] MEDS: SPIRONOLACTONE 25 MG TAB PO SCH ×2 (06:00→12:20)
[2018-03-13] MEDS: oxyCODONE HCL 5 MG CAP PO PRN ×2 (06:01→12:21)
[2018-03-13 08:00] VITALS: BP 119/67
[2018-03-13] MEDS: MORPHINE 60 MG PO SCH ×2 (08:51→20:45)
[2018-03-13] MEDS: MULTIVITAMINS TAB PO SCH (08:51)
[2018-03-13] MEDS: POTASSIUM CHL PWDR 20 MEQ PKT PO SCH (08:51)
[2018-03-13] MEDS: TRIMETH/SULFA DS 160-800MG TAB PO SCH ×2 (08:51→20:39)
[2018-03-13] MEDS: HEPARIN (PORC) 5000 UN/ML VIAL SC SCH ×2 (08:51→20:41)
[2018-03-13] MEDS: metFORMIN HCL 500 MG TAB PO SCH ×2 (08:51→17:27)
[2018-03-13] MEDS: FUROSEMIDE 40 MG TAB PO SCH (08:51)
[2018-03-13] MEDS: CHOLECALCIFEROL 1000 UNIT TAB PO SCH (12:20)
[2018-03-13] MEDS: MAGNESIUM OXIDE 400 MG TAB PO SCH (12:20)
[2018-03-13 16:30] VITALS: BP 135/87
[2018-03-13] MEDS: TOPIRAMATE 100 MG TAB PO SCH (20:40)
[2018-03-13] MEDS: ESCITALOPRAM OXALATE 10 MG TAB PO SCH (20:44)
[2018-03-13] MEDS: ATENOLOL 25 MG TAB PO SCH (20:44)
[2018-03-13] MEDS: LORATADINE 10 MG TAB PO SCH (20:44)
[2018-03-13] MEDS: FLUTICASONE PROP 0.05% 16 GM SCH (20:46)
[2018-03-14] MEDS: oxyCODONE HCL 5 MG CAP PO PRN ×4 (00:22→19:11)
[2018-03-14] MEDS: traZODone HCL 50 MG TAB PO SCH ×2 (00:22→22:04)
[2018-03-14] MEDS: LEVOTHYROXINE SOD 0.150 MG TAB PO SCH (05:17)
[2018-03-14] MEDS: SPIRONOLACTONE 25 MG TAB PO SCH ×2 (05:20→12:45)
--- NOTE | 2018-03-14 08:51 | Gen Surgery History & Physical ---
History of Present Illness Chief Complaint Weakness History of Present Illness 67yo female admitted with incarcerated [facility] emergently repaired by Dr. Garnica, on-call general surgeon, a week ago. Pt recovering without problems but she is too weak to go home and requires further PT/OT. She is being admitted to [facility] for continued physical rehab. History Problems: (1) Obstructive sleep apnea (adult) (pediatric) Status: Chronic (2) Chronic wound of extremity Status: Chronic (3) Diabetes Status: Chronic (4) Chronic pain Status: Chronic Home Meds Active Scripts Doxycycline Hyclate (DOXYCYCLINE HYCLATE) 100 Mg Tablet, 100 MG PO BID for 10 Days, #20 TAB 0 Refills Prov:YELENA BARRETT Nila CLINICAL ASSISTANT PROFESSOR-BC 02/28/18 Reported Medications Cyanocobalamin (Vitamin B-12) (CYANOCOBALAMIN INJECTION) 1,000 Mcg/1 Ml Vial, 1000 MCG IM monthly, VIAL 03/03/18 Loratadine (LORATADINE) 10 Mg Tablet, 10 MG PO Q HS 03/03/18 Cholecalciferol (Vitamin D3) (VITAMIN D3) 5,000 Unit Tablet, 5000 UNIT PO Q noon 03/03/18 Levothyroxine Sodium (LEVOTHYROXINE SODIUM) 150 Mcg Tablet, 150 MCG PO QDAY 03/03/18 Diphenhydramine Hcl (BENADRYL) 25 Mg Capsule, 25 MG PO Q6-8H PRN for ITCHING, CAPSULE 02/28/18 Ammonium Lactate/Emu Oil (EMU-LAC HYDRATING CREAM) 120 Ml Cream.ml., 120 ML TP QDAY PRN for RASH 02/28/18 Docusate Sodium (COLACE) 100 Mg Capsule, 100 MG PO BID PRN for CONSTIPATION, CAPSULE 02/28/18 Multivitamin With Minerals (MULTIPLE VITAMIN) 1 Each Tablet, 1 EACH PO QDAY, TAB 02/28/18 Ondansetron Hcl (ONDANSETRON HCL) 4 Mg Tablet, 4 MG PO Q6H PRN for NAUSEA 02/28/18 Sumatriptan Succinate (SUMATRIPTAN SUCCINATE) 25 Mg Tablet, 25 MG PO BID PRN for migraine 02/28/18 Diclofenac Sodium 1% Gel (VOLTAREN 1% GEL) 100 Gm Gel..gram., TOP PRN 4 g per side up to 4x/day = 32g 02/28/18 Triamcinolone Acetonide 0.1% Oint 15 Gm Tube (TRIAMCINOLONE ACETONIDE 0.1% 15 GM TUBE) 15 Gm Oint...g., TOP PRN 02/28/18 Miconazole Nitrate (MICRO-GUARD) 85 Gm Powder, TOP TID PRN for anti fungal 02/28/18 Fluticasone Prop 50 Mcg Ns (FLONASE 50 MCG NS) 16 Gm [place].susp, 2 SPR INH QHS 02/28/18 Ferrous Sulfate (FEOSOL) 325 Mg Tablet, 325 MG PO Qnoon 02/28/18 Escitalopram Oxalate (ESCITALOPRAM OXALATE) 10 Mg Tablet, 15 MG PO HS 02/28/18 Trazodone Hcl (TRAZODONE HCL) 50 Mg Tablet, 50 MG PO HS 02/28/18 Magnesium Oxide (MAG-OXIDE) 400 Mg Tablet, 400 MG PO Q noon 02/28/18 Topiramate (TOPIRAMATE) 200 Mg Tablet, 200 MG PO HS 02/28/18 Spironolactone (SPIRONOLACTONE) 50 Mg Tablet, 50 MG PO BID 02/28/18 Atenolol (ATENOLOL) 25 Mg Tablet, 25 MG PO HS 02/28/18 Famotidine (FAMOTIDINE) 20 Mg Tablet, 20 MG PO BIDLS 02/28/18 Morphine Sulfate (MORPHINE SULFATE ER) 60 Mg Tablet.er, 60 PO BID for PAIN 02/28/18 Metformin Hcl (METFORMIN HCL) 500 Mg Tablet, 1 TAB PO BID, TAB 02/28/18 Furosemide (LASIX) 40 Mg Tablet, 1 TAB PO QDAY, TAB 02/28/18 Potassium Chloride (POTASSIUM CHLORIDE) 20 Meq Tab.er.prt, 20 MEQ PO QDAY 02/28/18 Oxycodone Hcl 10 Mg Tab (OXYCODONE HCL 10 MG TAB) 10 Mg Tablet, 10 MG PO Q6H PRN for PAIN, TAB 02/28/18 Allergies: Coded Allergies: Penicillins (Verified Adverse Reaction, Unknown, HIVES, 02/28/18) Patient History: FH: alcoholism FATHER FH: cancer FATHER FH: rheumatoid arthritis MOTHER Smoking FATHER MOTHER Review of Systems All Systems Reviewed/Normal: Yes, Except as Noted Exam General Appearance: Alert, Awake, No Acute Distress, Afebrile GI: Other (Diffuse postop TTP, midline and right groin incisions are healing well without erythema or drainage.) Extremities: Warm, Perfused Assessment and Plan Problems: (1) Weakness Status: Chronic Assessment & Plan: 03/09/18: Admit to ECF for continued PT/OT. Will plan on removing surendra and retention sutures next week, at about 2 weeks after surgery. (2) Incarcerated right inguinal hernia Status: Resolved (3) Chronic pain Status: Chronic (4) Diabetes Status: Chronic (5) Chronic wound of extremity Status: Chronic (6) Obstructive sleep apnea (adult) (pediatric) Status: Chronic Condition Stable Time Spent: < 30 min Venous Thromboembolism VTE Risk Physician Assess for VTE Risk: Yes Patient's VTE Risk: Low VTE Diagnostic Test 2 Days Prior to Admit: No Antithrombotics Is Pt On Any Antithrombotics?: No Problem Qualifiers (1) Diabetes: Diabetes mellitus type: type 2 Diabetes mellitus bed bug exterminator insulin use: with [facility] use Diabetes mellitus complication status: with neurologic complications Diabetes mellitus complication detail: with polyneuropathy Qualified Codes: E11.42 - Type 2 diabetes mellitus with diabetic polyneuropathy; Z79.4 - terminal computer operator (current) use of insulin VANDANA SAMANO MD Mar 14, 2018 08:51
[2018-03-14] MEDS: metFORMIN HCL 500 MG TAB PO SCH ×2 (08:52→16:47)
[2018-03-14 09:21] VITALS: BP 102/59
[2018-03-14] MEDS: POTASSIUM CHL PWDR 20 MEQ PKT PO SCH (09:29)
[2018-03-14] MEDS: FUROSEMIDE 40 MG TAB PO SCH (09:29)
[2018-03-14] MEDS: MULTIVITAMINS TAB PO SCH (09:29)
[2018-03-14] MEDS: TRIMETH/SULFA DS 160-800MG TAB PO SCH ×2 (09:29→20:36)
[2018-03-14] MEDS: MORPHINE 60 MG PO SCH ×2 (09:29→20:37)
[2018-03-14] MEDS: HEPARIN (PORC) 5000 UN/ML VIAL SC SCH ×2 (09:30→20:37)
[2018-03-14] MEDS: MAGNESIUM OXIDE 400 MG TAB PO SCH (12:45)
[2018-03-14] MEDS: CHOLECALCIFEROL 1000 UNIT TAB PO SCH (12:45)
[2018-03-14] MEDS ORDERED: LIDOCAINE 2% JELLY 5 ML TUBE TP ONE (14:05)
[2018-03-14 16:55] VITALS: BP 104/68
[2018-03-14] MEDS: FLUTICASONE PROP 0.05% 16 GM SCH (20:36)
[2018-03-14] MEDS: TOPIRAMATE 100 MG TAB PO SCH (20:36)
[2018-03-14] MEDS: ATENOLOL 25 MG TAB PO SCH (20:36)
[2018-03-14] MEDS: LORATADINE 10 MG TAB PO SCH (20:37)
[2018-03-14] MEDS: ESCITALOPRAM OXALATE 10 MG TAB PO SCH (20:37)
[2018-03-15] MEDS: oxyCODONE HCL 5 MG CAP PO PRN ×3 (05:42→19:30)
[2018-03-15] MEDS: LEVOTHYROXINE SOD 0.150 MG TAB PO SCH (05:42)
[2018-03-15] MEDS: SPIRONOLACTONE 25 MG TAB PO SCH ×2 (05:42→12:28)
[2018-03-15 08:15] VITALS: BP 118/66
[2018-03-15] MEDS ORDERED: PNEUMOCOC VAC POLY 25MCG/0.5ML IM ONLY ONE (09:00)
[2018-03-15] MEDS: POTASSIUM CHL PWDR 20 MEQ PKT PO SCH (09:05)
[2018-03-15] MEDS: FUROSEMIDE 40 MG TAB PO SCH (09:05)
[2018-03-15] MEDS: MORPHINE 60 MG PO SCH ×2 (09:05→20:44)
[2018-03-15] MEDS: TRIMETH/SULFA DS 160-800MG TAB PO SCH ×2 (09:05→20:44)
[2018-03-15] MEDS: metFORMIN HCL 500 MG TAB PO SCH ×2 (09:05→17:07)
[2018-03-15] MEDS: MULTIVITAMINS TAB PO SCH (09:05)
[2018-03-15] MEDS: HEPARIN (PORC) 5000 UN/ML VIAL SC SCH ×2 (09:06→20:45)
[2018-03-15] MEDS ORDERED: INFLUENZA VIRUS VAC 0.5ML SYR IM ONLY ONE (10:00)
[2018-03-15] MEDS: MAGNESIUM OXIDE 400 MG TAB PO SCH (12:28)
[2018-03-15] MEDS: CHOLECALCIFEROL 1000 UNIT TAB PO SCH (12:28)
[2018-03-15 16:15] VITALS: BP 115/71
[2018-03-15] MEDS: LORATADINE 10 MG TAB PO SCH (20:44)
[2018-03-15] MEDS: ATENOLOL 25 MG TAB PO SCH (20:44)
[2018-03-15] MEDS: ESCITALOPRAM OXALATE 10 MG TAB PO SCH (20:44)
[2018-03-15] MEDS: FLUTICASONE PROP 0.05% 16 GM SCH (20:44)
[2018-03-15] MEDS: TOPIRAMATE 100 MG TAB PO SCH (20:45)
[2018-03-15] MEDS: traZODone HCL 50 MG TAB PO SCH (23:55)
[2018-03-16] MEDS: SPIRONOLACTONE 25 MG TAB PO SCH ×2 (05:17→12:02)
[2018-03-16] MEDS: oxyCODONE HCL 5 MG CAP PO PRN ×3 (05:18→23:51)
[2018-03-16] MEDS: LEVOTHYROXINE SOD 0.150 MG TAB PO SCH (05:18)
[2018-03-16 08:05] VITALS: BP 105/53
[2018-03-16] MEDS: TRIMETH/SULFA DS 160-800MG TAB PO SCH ×2 (08:48→20:01)
[2018-03-16] MEDS: MORPHINE 60 MG PO SCH ×2 (08:48→20:01)
[2018-03-16] MEDS: metFORMIN HCL 500 MG TAB PO SCH ×2 (08:48→17:00)
[2018-03-16] MEDS: POTASSIUM CHL PWDR 20 MEQ PKT PO SCH (08:48)
[2018-03-16] MEDS: MULTIVITAMINS TAB PO SCH (08:48)
[2018-03-16] MEDS: FUROSEMIDE 40 MG TAB PO SCH (08:48)
[2018-03-16] MEDS: HEPARIN (PORC) 5000 UN/ML VIAL SC SCH ×2 (08:49→20:02)
[2018-03-16] MEDS: CHOLECALCIFEROL 1000 UNIT TAB PO SCH (12:02)
[2018-03-16] MEDS: MAGNESIUM OXIDE 400 MG TAB PO SCH (12:02)
--- NOTE | 2018-03-16 12:51 | OT ECF NOTE ---
Type of Note: Discharge Note Primary Medical Diagnosis: SBO Occupational Therapy Evaluation Date: 03/10/18 SUBJECTIVE: Prior Hospitalization: Pt. admitted to [facility] ICU/Medical/ Surgical Floor from 03/02/18 to 03/10/18 Prior Level of Function: Pt. was able to ambulate short distances at home donning a bike helmet and gait belt due to frequent falls. Pt. performs bed bathes at home and has been receiving [facility] for wound care. Prior Living Status: Single level house Living with family Assist by family Community Services: Home health longterm Accessibility: One step into home (pt.'s son states that he perform w/c bumps up/down one step with Mom) All needs on one level Equipment Owned: Front wheeled walker Wheelchair, hospital bed, electric lift recliner, FWW Medical Complications/Past Medical History: Extensive medical history, please refer to chart for details. Psychosocial Support: Very supportive son, who is patients caregiver. Pain Scale (0-10): 5/10 in Right 5th toe OBJECTIVE: Strength: MMT: Right Left Shoulder Flexion [*] [*] Elbow Flexion [*] [*] Wrist Extension [*] [*] Reject Opener And Filler [*] [*] (5= normal, 4= good, 3= fair, 2= poor, 1= trace) ROM: Both upper extremities Severly limited Functional Transfer: Assistive Device: Front wheeled walker Gait belt Transfer Ability: Mod I ADL: Upper body dressing: Assistive device: Upper body dressing ability:ORTIZ Lower body dressing: Assistive device: Lower body dressing ability: Min A Toileting: Assistive device: Grab bars, raised toilet seat Toileting ability: SBA Grooming/hygiene: Assistive device: Grooming ability: Min A Bathing: Assistive device: Bathing ability: pt. performs bed bathes at home. Standardized Assessment: Sobia Index of Activities of Daily Living- Pt. scored 9/20 on this Index on 03/10/18. ASSESSMENT: Pt. is a 67 year old female who was admitted with a SBO on 03/02/18. Pt. has a complex medical history with a current wound on her Right 5th toe requiring wound care prior to admission. Pt. currently resides in [place] with her 2 children who assist with caring for her. Pt. needs to be able to ambulate short distances with use of FWW in order to return to home. Problem List/Current Limitations: Short Term Goals: 1. Pt. to perform LB dressing with Mod A. Goal met (min A) 2. Pt. to perform toileting activities with Min A. GOal met (SBA) 3. Pt. to improve Sobia Index of ADL score by 2 points. Goal met. 4. Pt. to improve g/h activities with I. Goal met, with exception of combing hair which requires Min A due to pt.'s lack of shoulder ROM. Sulfur Chloride Operator Goals: Return to home with HH Care. Patient Goals: Return to home. Rehabilitation Prognosis: Fair Barriers to Discharge: Complex medial issues PLAN: The patient will d/c to home with HH care and assistance from son for IADL. Thank you for this referral. If you have any questions, concerns, or comments about this report or plan, please contact me at . Aster Holden OTR/L Occupational Therapist CC: KYLER
[2018-03-16] MEDS ORDERED: OXYC10TA67 PO (14:11)
[2018-03-16] MEDS ORDERED: MORP60TA50 PO (14:11)
--- NOTE | 2018-03-16 14:20 | Short(Outpt) Discharge Summary ---
Discharge Summary Reason for Hosp/Final Diag: (1) Weakness Status: Chronic Hospital Course & Plan: 03/09/18: Admit to ECF for continued PT/OT. Will plan on removing surendra and retention sutures next week, at about 2 weeks after surgery. 03/16/18: Doing well. Surendra and retention sutures removed, steristrips applied to the incisions. Pt is healing well. PT/OT and ECF staff's assessment is that she's ready to go home from rehab standpoint. Pt reluctant but she has met all of her care goals. Will plan on d/c to home tomorrow and I will follow her closely as an outpatient. (2) Incarcerated right inguinal hernia Status: Resolved (3) Chronic pain Status: Chronic (4) Diabetes Status: Chronic (5) Chronic wound of extremity Status: Chronic (6) Obstructive sleep apnea (adult) (pediatric) Status: Chronic Departure Discharge to: Home, Home Health Discharge Instructions Home Meds Active Scripts Morphine Sulfate (MORPHINE SULFATE ER) 60 Mg Tablet.er, 1 TAB PO BID for PAIN, #30 TAB 0 Refills Prov:VANDANA SAMANO MD 03/16/18 Oxycodone Hcl 10 Mg Tab (OXYCODONE HCL 10 MG TAB) 10 Mg Tablet, 1 TAB PO Q6H PRN for PAIN, #30 TAB 0 Refills Prov:VANDANA SAMANO MD 03/16/18 Doxycycline Hyclate (DOXYCYCLINE HYCLATE) 100 Mg Tablet, 100 MG PO BID for 10 Days, #20 TAB 0 Refills Prov:YELENA BARRETT MEDICARE NURSE-BC 02/28/18 Reported Medications Cyanocobalamin (Vitamin B-12) (CYANOCOBALAMIN INJECTION) 1,000 Mcg/1 Ml Vial, 1000 MCG IM monthly, VIAL 03/03/18 Loratadine (LORATADINE) 10 Mg Tablet, 10 MG PO Q HS 03/03/18 Cholecalciferol (Vitamin D3) (VITAMIN D3) 5,000 Unit Tablet, 5000 UNIT PO Q noon 03/03/18 Levothyroxine Sodium (LEVOTHYROXINE SODIUM) 150 Mcg Tablet, 150 MCG PO QDAY 03/03/18 Diphenhydramine Hcl (BENADRYL) 25 Mg Capsule, 25 MG PO Q6-8H PRN for ITCHING, CAPSULE 02/28/18 Ammonium Lactate/Emu Oil (EMU-LAC HYDRATING CREAM) 120 Ml Cream.ml., 120 ML TP QDAY PRN for RASH 02/28/18 Docusate Sodium (COLACE) 100 Mg Capsule, 100 MG PO BID PRN for CONSTIPATION, CAPSULE 02/28/18 Multivitamin With Minerals (MULTIPLE VITAMIN) 1 Each Tablet, 1 EACH PO QDAY, TAB 02/28/18 Ondansetron Hcl (ONDANSETRON HCL) 4 Mg Tablet, 4 MG PO Q6H PRN for NAUSEA 02/28/18 Sumatriptan Succinate (SUMATRIPTAN SUCCINATE) 25 Mg Tablet, 25 MG PO BID PRN for migraine 02/28/18 Diclofenac Sodium 1% Gel (VOLTAREN 1% GEL) 100 Gm Gel..gram., TOP PRN 4 g per side up to 4x/day = 32g 02/28/18 Triamcinolone Acetonide 0.1% Oint 15 Gm Tube (TRIAMCINOLONE ACETONIDE 0.1% 15 GM TUBE) 15 Gm Oint...g., TOP PRN 02/28/18 Miconazole Nitrate (MICRO-GUARD) 85 Gm Powder, TOP TID PRN for anti fungal 02/28/18 Fluticasone Prop 50 Mcg Ns (FLONASE 50 MCG NS) 16 Gm [place].susp, 2 SPR INH QHS 02/28/18 Ferrous Sulfate (FEOSOL) 325 Mg Tablet, 325 MG PO Qnoon 02/28/18 Escitalopram Oxalate (ESCITALOPRAM OXALATE) 10 Mg Tablet, 15 MG PO HS 02/28/18 Trazodone Hcl (TRAZODONE HCL) 50 Mg Tablet, 50 MG PO HS 02/28/18 Magnesium Oxide (MAG-OXIDE) 400 Mg Tablet, 400 MG PO Q noon 02/28/18 Topiramate (TOPIRAMATE) 200 Mg Tablet, 200 MG PO HS 02/28/18 Spironolactone (SPIRONOLACTONE) 50 Mg Tablet, 50 MG PO BID 02/28/18 Atenolol (ATENOLOL) 25 Mg Tablet, 25 MG PO HS 02/28/18 Famotidine (FAMOTIDINE) 20 Mg Tablet, 20 MG PO BIDLS 02/28/18 Metformin Hcl (METFORMIN HCL) 500 Mg Tablet, 1 TAB PO BID, TAB 02/28/18 Furosemide (LASIX) 40 Mg Tablet, 1 TAB PO QDAY, TAB 02/28/18 Potassium Chloride (POTASSIUM CHLORIDE) 20 Meq Tab.er.prt, 20 MEQ PO QDAY 02/28/18 Follow up Referrals: General Surgery - 03/21/18 @ Surgery, General with VANDANA SAMANO MD You have a follow up appointment scheduled with Dr. Samano on 03/21/18, at 2 :00pm. Diet: Diabetic Activity: No Heavy Lifting Special Instructions: Avoid any activities that involve straining or lifting more than 10 pounds for 6 weeks after surgery. You may shower as desired but don't immerse the incisions for 2 weeks (until March 30). Leave the incisions open to air but leave the steristrips in place until they fall off on their own. Problem Qualifiers (1) Diabetes: Diabetes mellitus type: type 2 Diabetes mellitus oysterman insulin use: with [facility] use Diabetes mellitus complication status: with neurologic complications Diabetes mellitus complication detail: with polyneuropathy Qualified Codes: E11.42 - Type 2 diabetes mellitus with diabetic polyneuropathy; Z79.4 - parts counterman (current) use of insulin VANDANA SAMANO MD Mar 16, 2018 14:20
[2018-03-16 16:45] VITALS: BP 111/68
[2018-03-16] MEDS: ESCITALOPRAM OXALATE 10 MG TAB PO SCH (20:01)
[2018-03-16] MEDS: LORATADINE 10 MG TAB PO SCH (20:01)
[2018-03-16] MEDS: ATENOLOL 25 MG TAB PO SCH (20:01)
[2018-03-16] MEDS: FLUTICASONE PROP 0.05% 16 GM SCH (20:02)
[2018-03-16] MEDS: TOPIRAMATE 100 MG TAB PO SCH (20:02)
[2018-03-16] MEDS: traZODone HCL 50 MG TAB PO SCH (23:51)
[2018-03-17] MEDS: LEVOTHYROXINE SOD 0.150 MG TAB PO SCH (05:40)
[2018-03-17] MEDS: SPIRONOLACTONE 25 MG TAB PO SCH ×2 (05:40→12:07)
[2018-03-17] MEDS: oxyCODONE HCL 5 MG CAP PO PRN ×2 (05:46→12:07)
[2018-03-17 07:45] VITALS: BP 131/61
[2018-03-17] MEDS: metFORMIN HCL 500 MG TAB PO SCH (08:24)
[2018-03-17] MEDS: MORPHINE 60 MG PO SCH (08:24)
[2018-03-17] MEDS: MULTIVITAMINS TAB PO SCH (08:24)
[2018-03-17] MEDS: POTASSIUM CHL PWDR 20 MEQ PKT PO SCH (08:24)
[2018-03-17] MEDS: FUROSEMIDE 40 MG TAB PO SCH (08:24)
[2018-03-17] MEDS: TRIMETH/SULFA DS 160-800MG TAB PO SCH (08:24)
[2018-03-17] MEDS: HEPARIN (PORC) 5000 UN/ML VIAL SC SCH (08:24)
[2018-03-17] MEDS: MAGNESIUM OXIDE 400 MG TAB PO SCH (12:07)
[2018-03-17] MEDS: CHOLECALCIFEROL 1000 UNIT TAB PO SCH (12:07)
[2018-03-20] MEDS ORDERED: PNEUMOCOC VAC POLY 25MCG/0.5ML IM ONLY ONE (09:00)
[2018-03-20] MEDS ORDERED: INFLUENZA VIRUS VAC 0.5ML SYR IM ONLY ONE (09:00)
--- NOTE | 2018-03-23 10:34 | PT ECF NOTE ---
Type of Note: Discharge Summary 03/17/18 Primary Medical Diagnosis: Incarcerated R inguinal hernia s/p surgical intervention. Physical Therapy Evaluation Date: 03/09/2018 SUBJECTIVE: Prior Hospitalization: [facility] Med/Surg 03/03/2018 - 03/09/2018 Prior Level of Function: Pt's history provided by her son who is her caregiver while on Medical/Surgical unit. Subjective questions asked to Pt, however, she chose to defer to her son. Pt typically lives with her son in [place] but has been in [place] for the summer visiting her daughter with the son also here taking care of her. Pt's son reports Pt uses a wheelchair for community mobility and also he "bumps" her up/down stairs in the wheelchair. Pt has a hospital bed, lift chair, rollator walker. Pt's son states she typically uses a bicycle helmet for head protection during ambulation household distances due to frequent falls. Prior Living Status: Single level house, Living with family, Assist by family Community Services: Home health care, son is her caregiver Home Accessibility: stairs, All needs on one level Equipment Owned: Front wheeled walker, Wheelchair, hospital bed, lift chair Medical Complications/Past Medical History: extensive Psychosocial Support: supportive son who is her caregiver and daughter who they are currently staying with. Pain Scale (0-10): Pt reports abdominal pain and R 5th toe pain OBJECTIVE: Bed Mobility: Min A sit>supine with Pt refusing to attempt this task independently stating she has assistance at home and also that she is able to perform this task at home due to her bed being lower. Assistive device: Rail and head of bed elevated Transfers: SBA/Mod I Assistive Device: Front wheeled walker Gait: SBA/Mod I x 150' Assistive device: Front wheeled walker WOUND: Closed (with a scab) 4th toe medial wound. Right 5th Medial Toe Pressure Ulcer: no measurable change, home health to continue to manage ASSESSMENT: Pt has met PT goals and is safe for DC to care of her children and home health. Problem List/Current Limitations: Pain, Decreased activity tolerance, Decreased strength, Generalized weakness Short Term Goals: 1. SBA bed mobility with use of hospital bed features as Pt does have hospital bed at home. 2. SBA sit<>stand transfer. 3. Ambulation x 50' with RW and SBA. Mechanical Systems Designer Goals: Return to prior living arrangements. Patient Goals: Return to prior living arrangements. Rehabilitation Prognosis: Fair Barriers for Discharge: None identified at this time. PLAN: Discharge with the assistance of Pt's son who is her caregiver and home health. Thank you for this referral. If you have any questions, concerns, or comments about this report or plan, please contact me at . Margaret Kingston, PT, DPT, GCS MTDD
== END 2018-03-17 16:05 | disposition home health service (06) | DRG 940 ==
LOC: ECF 10:30
PROVIDERS: ADMIT Surgery; ATTEND Surgery
PROC: 0JDQ0ZZ Extraction of Right Foot Subcutaneous Tissue and Fascia, Open Approach (ICD-10-PCS; principal; 2018-03-09)
PROC: 0JDQ0ZZ Extraction of Right Foot Subcutaneous Tissue and Fascia, Open Approach (ICD-10-PCS; 2018-03-12)
PROC: 0JDQ0ZZ Extraction of Right Foot Subcutaneous Tissue and Fascia, Open Approach (ICD-10-PCS; 2018-03-14)
PROC: 0JDQ0ZZ Extraction of Right Foot Subcutaneous Tissue and Fascia, Open Approach (ICD-10-PCS; 2018-03-16)
DX: R53.1 Weakness (principal); L97.516 Non-pressure chronic ulcer of other part of right foot with bone involvement without evidence of necrosis; G47.33 Obstructive sleep apnea (adult) (pediatric); E11.621 Type 2 diabetes mellitus with foot ulcer; G89.29 Other chronic pain; Z88.0 Allergy status to penicillin; Z79.4 Long term (current) use of insulin; Z97.3 Presence of spectacles and contact lenses; Z86.73 Personal history of transient ischemic attack (TIA), and cerebral infarction without residual deficits; Z95.0 Presence of cardiac pacemaker
CPT/HCPCS: 36416; 82948; 97163; 97165; J1644; J1815; J2405

== ENCOUNTER 2018-04-08 03:46 | Emergency (ER) | payer MEDICARE, MEDICAID ==
[2018-03-10 13:06] VITALS: Wt 75.8 kg
--- NOTE | 2018-04-08 03:48 | ER Report ---
History and Physical Time Seen By MD: 03:48 HPI/ROS CHIEF COMPLAINT: Head injury HISTORY OF PRESENT ILLNESS: [facility] 7-year-old female with extensive past medical history of multiple problems. She got up at night to go to the bathroom when she fell she struck the back of her head. 15 minutes prior to arrival. Her son brought her in. There is a large hematoma on the right occipital region. There is a tiny laceration medial and superior to this area. Patient denies LOC, nausea, vomiting or headache. She denies neck pain. She is freely moving her neck about. Patient takes significant chronic pain medication. She denies chest and back injury. Patient reports her tetanus status is up-to-date. Patient falls frequently and normally wears a helmet. She does not wear tonight when she sleeps. REVIEW OF SYSTEMS: Respiratory: No cough, no dyspnea. Cardiovascular: No chest pain, no palpitations. Gastrointestinal: No vomiting, no abdominal pain. Musculoskeletal: No back pain. Allergies: Coded Allergies: Penicillins (Verified Adverse Reaction, Unknown, HIVES, 04/08/18) Home Meds Active Scripts Morphine Sulfate (MORPHINE SULFATE ER) 60 Mg Tablet.er, 1 TAB PO BID for PAIN, #30 TAB 0 Refills Prov:VANDANA SAMANO MD 03/16/18 Oxycodone Hcl 10 Mg Tab (OXYCODONE HCL 10 MG TAB) 10 Mg Tablet, 1 TAB PO Q6H PRN for PAIN, #30 TAB 0 Refills Prov:VANDANA SAMANO MD 03/16/18 Doxycycline Hyclate (DOXYCYCLINE HYCLATE) 100 Mg Tablet, 100 MG PO BID for 10 Days, #20 TAB 0 Refills Prov:YELENA BARRETT [employer]LECT[employer]OR REPAIRER-BC 02/28/18 Reported Medications Cyanocobalamin (Vitamin B-12) (CYANOCOBALAMIN INJECTION) 1,000 Mcg/1 Ml Vial, 1000 MCG IM monthly, VIAL 03/03/18 Loratadine (LORATADINE) 10 Mg Tablet, 10 MG PO Q HS 03/03/18 Cholecalciferol (Vitamin D3) (VITAMIN D3) 5,000 Unit Tablet, 5000 UNIT PO Q noon 03/03/18 Levothyroxine Sodium (LEVOTHYROXINE SODIUM) 150 Mcg Tablet, 150 MCG PO QDAY 03/03/18 Diphenhydramine Hcl (BENADRYL) 25 Mg Capsule, 25 MG PO Q6-8H PRN for ITCHING, CAPSULE 02/28/18 Ammonium Lactate/Emu Oil (EMU-LAC HYDRATING CREAM) 120 Ml Cream.ml., 120 ML TP QDAY PRN for RASH 02/28/18 Docusate Sodium (COLACE) 100 Mg Capsule, 100 MG PO BID PRN for CONSTIPATION, CAPSULE 02/28/18 Multivitamin With Minerals (MULTIPLE VITAMIN) 1 Each Tablet, 1 EACH PO QDAY, TAB 02/28/18 Ondansetron Hcl (ONDANSETRON HCL) 4 Mg Tablet, 4 MG PO Q6H PRN for NAUSEA 02/28/18 Sumatriptan Succinate (SUMATRIPTAN SUCCINATE) 25 Mg Tablet, 25 MG PO BID PRN for migraine 02/28/18 Diclofenac Sodium 1% Gel (VOLTAREN 1% GEL) 100 Gm Gel..gram., TOP PRN 4 g per side up to 4x/day = 32g 02/28/18 Triamcinolone Acetonide 0.1% Oint 15 Gm Tube (TRIAMCINOLONE ACETONIDE 0.1% 15 GM TUBE) 15 Gm Oint...g., TOP PRN 02/28/18 Miconazole Nitrate (MICRO-GUARD) 85 Gm Powder, TOP TID PRN for anti fungal 02/28/18 Fluticasone Prop 50 Mcg Ns (FLONASE 50 MCG NS) 16 Gm [place].susp, 2 SPR INH QHS 02/28/18 Ferrous Sulfate (FEOSOL) 325 Mg Tablet, 325 MG PO Qnoon 02/28/18 Escitalopram Oxalate (ESCITALOPRAM OXALATE) 10 Mg Tablet, 15 MG PO HS 02/28/18 Trazodone Hcl (TRAZODONE HCL) 50 Mg Tablet, 50 MG PO HS 02/28/18 Magnesium Oxide (MAG-OXIDE) 400 Mg Tablet, 400 MG PO Q noon 02/28/18 Topiramate (TOPIRAMATE) 200 Mg Tablet, 200 MG PO HS 02/28/18 Spironolactone (SPIRONOLACTONE) 50 Mg Tablet, 50 MG PO BID 02/28/18 Atenolol (ATENOLOL) 25 Mg Tablet, 25 MG PO HS 02/28/18 Famotidine (FAMOTIDINE) 20 Mg Tablet, 20 MG PO BIDLS 02/28/18 Metformin Hcl (METFORMIN HCL) 500 Mg Tablet, 1 TAB PO BID, TAB 02/28/18 Furosemide (LASIX) 40 Mg Tablet, 1 TAB PO QDAY, TAB 02/28/18 Potassium Chloride (POTASSIUM CHLORIDE) 20 Meq Tab.er.prt, 20 MEQ PO QDAY 02/28/18 Past Medical/Surgical History The patient has a past medical and surgical history of migraines, has a pacemaker for low heart rate, A. fib, hypertension, gastric bypass, urinary frequency, arthritis, chronic back pain, chronic foot pain, depression, anxiety, facial and lip cancer, chemotherapy, diabetes, appendectomy, cholecystectomy, bilateral total knees, total right hip.. Reviewed Nurses Notes: Yes Old Medical Records Reviewed: Yes Hx Smoking: No Hx Substance Use Disorder: No Hx Alcohol Use: No Constitutional Vital Sign - Last 24 Hours 04/08/18 04/08/18 04/08/18 04/08/18 03:53 03:54 04:00 04:30 Temp 99.2 Pulse 76 Resp 18 B/P (MAP) 125/99 125/99 (108) 108/65 (79) 87/53 (64) Pulse Ox 91 O2 Delivery Room Air 04/08/18 04/08/18 04/08/18 04:46 05:00 05:16 Pulse 68 71 B/P (MAP) 96/58 (71) Pulse Ox 96 98 Physical Exam General Appearance: The patient is alert, has no immediate need for airway protection and no current signs of toxicity. The patient of the head and neck reveals a large scalp hematoma on the right occipital region, superior and medial to this is a 2.0 cm laceration. With minimal bleeding. There is no tenderness on palpation of the cervical spine. HEENT: Pupils equal and round no injection. TMs normal, oropharynx without redness or exudate, mucous. Membranes are moist., No dental trauma Respiratory: Chest is non tender, lungs are clear to auscultation. No chest wall tenderness Cardiac: regular rate and rhythm Gastrointestinal: Abdomen is soft and non tender, no masses, bowel sounds normal. Musculoskeletal: Neck: Neck is supple and non tender. No tenderness on aggressive palpation of the midline Extremities have full range of motion and are non tender. Skin: No rashes or lesions. Neuro: Alert and oriented 3, cranial nerves II through XII intact motor 5/5 all groups, sensory intact to light touch 4 DIFFERENTIAL DIAGNOSIS: After history and physical exam differential diagnosis was considered for head injury including but not limited to concussion, skull fracture, intraparenchymal contusion, subarachnoid, subdural and epidural hematoma. Medical Decision Making EKG/Imaging Imaging Results: CT scan of the head without contrast was obtained. The results of the study are no acute intracranial findings, scalp hematoma. The study was read by the radiologist. I viewed the images myself on the PACS system. ED Course/Re-evaluation ED Course Patient was admitted to an examination room. H&P was done. The differential diagnoses was considered. On clinical examination. Patient has a headache injury. There is a large scalp hematoma in the laceration. There is no neck tenderness. A CT of the head is performed which is unremarkable. Her tetanus status is verified is up-to-date. Laceration is repaired as noted below. Head injury precautions were reviewed with the patient and her son. Procedure: Laceration repair. Verbal consent was obtained from the patient. The 2.03 cm laceration on the scalp vertex location was anesthetized in the usual fashion. The wound was scrubbed, draped and explored to its base with a gloved finger. There were no deep structures involved. The wound was repaired with surendra 3. The wound repair was simple. The procedure was performed by myself. Decision to Disposition Date: Apr 08, 2018 Decision to Disposition Time: 04:59 Depart Departure Latest Vital Signs Vital Signs Date Time Temp Pulse Resp B/P (MAP) Pulse Ox O2 Delivery O2 Flow Rate FiO2 04/08/18 05:16 71 98 04/08/18 05:00 96/58 (71) 04/08/18 03:53 99.2 18 Room Air Impression: Primary Impression: Fall from ground level Additional Impressions: Hematoma of scalp Scalp laceration Chronic pain syndrome Condition: Improved Disposition: HOME OR SELF-CARE Patient Instructions: Head Injury (ED), Hematoma (ED), Laceration (ED) Additional Instructions: Have surendra removed from scalp in one week Problem Qualifiers Additional Impressions: Hematoma of scalp Encounter type: initial encounter Qualified Codes: S00.03XA - Contusion of scalp, initial encounter Scalp laceration Encounter type: initial encounter Qualified Codes: S01.01XA - Laceration without foreign body of scalp, initial encounter ISABEL YOUNG DO Apr 08, 2018 03:48
--- NOTE | 2018-04-08 04:56 | RADIOLOGY IMAGING REPORT ---
FACILITY: [facility] PATIENT NAME: Makenzie Fox : 1950 MR: [id number] V: [id number] EXAM DATE: ORDERING PHYSICIAN: ISABEL YOUGN TECHNOLOGIST: Location: [facility] [place] Patient: Makenzie Fox : 1950 Visit/Account:[id number] Date of Sevice: 04/08/2018 HEAD W/O CONTRAST HISTORY: Fall. Hit head. COMPARISON: None. TECHNIQUE: Axial images were obtained from the skull base to the vertex without contrast. Sagittal an d coronal reformats were performed. One of the following dose optimization techniques was utilized in the performance of this exam: Autom ated exposure control; adjustment of the mA and/or kV according to the patient's size; or use of an i terative reconstruction technique. Specific details can be referenced in the facility's radiology CT exam operational policy. CONTRAST: None. FINDINGS: Brain: No intracranial hemorrhage, mass, or edema. There is periventricular and subcortical white mat ter low attenuation that is nonspecific, but most likely reflects chronic microvascular ischemic montero ge, mild in severity. There is a lacunar infarct versus a dilated perivascular space in the left basa l ganglia. There is mild calcification of the internal carotid arteries. Ventricles and sulci: Sulci are normal. Ventricular size and configuration is normal. Osseous structures: Intact. There is hyperostosis frontalis interna. Paranasal sinuses and mastoids: There is mild mucosal thickening of the ethmoid sinuses. Leftward stacy al septal deviation. Mastoids are clear. Orbits and soft tissues: There is a large right parietal-occipital scalp hematoma. IMPRESSION: 1. Large scalp hematoma, but no acute intracranial abnormality. Report Dictated By: Alicia Odonnell at 04/08/2018 4:46 AM Report E-Signed By: Alicia Odonnell at 04/08/2018 4:51 AM WSN:[id number]
[2018-04-08 05:00] VITALS: BP 96/58
== END 2018-04-08 05:40 | disposition home or self-care (01) ==
LOC: ER 03:57
DX: S01.01XA Laceration without foreign body of scalp, initial encounter (principal); S00.11XA Contusion of right eyelid and periocular area, initial encounter; G89.4 Chronic pain syndrome; W18.30XA Fall on same level, unspecified, initial encounter
CPT/HCPCS: 70450; 99284

== ENCOUNTER 2018-04-18 12:17 | Emergency (ER) | payer MEDICARE, MEDICAID ==
[2018-03-10 13:06] VITALS: Wt 76.0 kg
--- NOTE | 2018-04-18 12:24 | ER Report ---
History and Physical Time Seen By MD: 12:24 HPI/ROS CHIEF COMPLAINT: Laceration, staple removal. HISTORY OF PRESENT ILLNESS: The patient returns to the ED for suture removal. There have been no problems and no symptoms of infection. The laceration was on the posterior scalp. Sutures have been in place for 10 days. Allergies: Coded Allergies: Penicillins (Verified Adverse Reaction, Unknown, HIVES, 04/08/18) Home Meds Active Scripts Morphine Sulfate (MORPHINE SULFATE ER) 60 Mg Tablet.er, 1 TAB PO BID for PAIN, #30 TAB 0 Refills Prov:VANDANA SAMANO MD 03/16/18 Oxycodone Hcl 10 Mg Tab (OXYCODONE HCL 10 MG TAB) 10 Mg Tablet, 1 TAB PO Q6H PRN for PAIN, #30 TAB 0 Refills Prov:VANDANA SAMANO MD 03/16/18 Doxycycline Hyclate (DOXYCYCLINE HYCLATE) 100 Mg Tablet, 100 MG PO BID for 10 Days, #20 TAB 0 Refills Prov:YELENA BARRETT FI[employer] II FARMWORKER-BC 02/28/18 Reported Medications Cyanocobalamin (Vitamin B-12) (CYANOCOBALAMIN INJECTION) 1,000 Mcg/1 Ml Vial, 1000 MCG IM monthly, VIAL 03/03/18 Loratadine (LORATADINE) 10 Mg Tablet, 10 MG PO Q HS 03/03/18 Cholecalciferol (Vitamin D3) (VITAMIN D3) 5,000 Unit Tablet, 5000 UNIT PO Q noon 03/03/18 Levothyroxine Sodium (LEVOTHYROXINE SODIUM) 150 Mcg Tablet, 150 MCG PO QDAY 03/03/18 Diphenhydramine Hcl (BENADRYL) 25 Mg Capsule, 25 MG PO Q6-8H PRN for ITCHING, CAPSULE 02/28/18 Ammonium Lactate/Emu Oil (EMU-LAC HYDRATING CREAM) 120 Ml Cream.ml., 120 ML TP QDAY PRN for RASH 02/28/18 Docusate Sodium (COLACE) 100 Mg Capsule, 100 MG PO BID PRN for CONSTIPATION, CAPSULE 02/28/18 Multivitamin With Minerals (MULTIPLE VITAMIN) 1 Each Tablet, 1 EACH PO QDAY, TAB 02/28/18 Ondansetron Hcl (ONDANSETRON HCL) 4 Mg Tablet, 4 MG PO Q6H PRN for NAUSEA 02/28/18 Sumatriptan Succinate (SUMATRIPTAN SUCCINATE) 25 Mg Tablet, 25 MG PO BID PRN for migraine 02/28/18 Diclofenac Sodium 1% Gel (VOLTAREN 1% GEL) 100 Gm Gel..gram., TOP PRN 4 g per side up to 4x/day = 32g 02/28/18 Triamcinolone Acetonide 0.1% Oint 15 Gm Tube (TRIAMCINOLONE ACETONIDE 0.1% 15 GM TUBE) 15 Gm Oint...g., TOP PRN 02/28/18 Miconazole Nitrate (MICRO-GUARD) 85 Gm Powder, TOP TID PRN for anti fungal 02/28/18 Fluticasone Prop 50 Mcg Ns (FLONASE 50 MCG NS) 16 Gm [place].susp, 2 SPR INH QHS 02/28/18 Ferrous Sulfate (FEOSOL) 325 Mg Tablet, 325 MG PO Qnoon 02/28/18 Escitalopram Oxalate (ESCITALOPRAM OXALATE) 10 Mg Tablet, 15 MG PO HS 02/28/18 Trazodone Hcl (TRAZODONE HCL) 50 Mg Tablet, 50 MG PO HS 02/28/18 Magnesium Oxide (MAG-OXIDE) 400 Mg Tablet, 400 MG PO Q noon 02/28/18 Topiramate (TOPIRAMATE) 200 Mg Tablet, 200 MG PO HS 02/28/18 Spironolactone (SPIRONOLACTONE) 50 Mg Tablet, 50 MG PO BID 02/28/18 Atenolol (ATENOLOL) 25 Mg Tablet, 25 MG PO HS 02/28/18 Famotidine (FAMOTIDINE) 20 Mg Tablet, 20 MG PO BIDLS 02/28/18 Metformin Hcl (METFORMIN HCL) 500 Mg Tablet, 1 TAB PO BID, TAB 02/28/18 Furosemide (LASIX) 40 Mg Tablet, 1 TAB PO QDAY, TAB 02/28/18 Potassium Chloride (POTASSIUM CHLORIDE) 20 Meq Tab.er.prt, 20 MEQ PO QDAY 02/28/18 Past Medical/Surgical History The patient has a past medical and surgical history of hypothyroidism, wears glasses, headaches, pacemaker, A. fib, BiPAP at night, obstructive sleep apnea, gastric bypass, abdominal hernia, appendectomy, so cholecystectomy, GERD, arthritis, right hip replacement, back pain, type II diabetes, depression, chemotherapy, lymphedema. Reviewed Nurses Notes: Yes Hx Smoking: No Hx Substance Use Disorder: No Hx Alcohol Use: No Constitutional Vital Sign - Last 24 Hours 04/18/18 12:32 Temp 98.0 Pulse 96 Resp 16 B/P (MAP) 110/78 Pulse Ox 92 O2 Delivery Room Air Physical Exam General appearance: Alert no distress. Respiratory: Chest is non tender, lungs are clear to auscultation. Cardiac: Regular rate and rhythm. Integumentary: 3 surendra to the posterior scalp, no erythema or sialitis. Surrounding bruise in multiple stages of healing. DIFFERENTIAL DIAGNOSIS: After history and physical exam differential diagnosis was considered for staple removal. Medical Decision Making ED Course/Re-evaluation ED Course The patient was moved to room. A history and physical obtained. 3 surendra were in the posterior scalp, 3 surendra were removed without difficulty. Patient tolerated well. Instructed to monitor for signs of infection follow-up with her primary care provider. Patient had no questions or concerns was discharged home. Decision to Disposition Date: Apr 18, 2018 Decision to Disposition Time: 12:31 Depart Departure Latest Vital Signs Vital Signs Date Time Temp Pulse Resp B/P (MAP) Pulse Ox O2 Delivery O2 Flow Rate FiO2 04/18/18 12:32 98.0 96 16 110/78 92 Room Air Impression: Primary Impression: Removal of surendra Condition: Improved Disposition: HOME OR SELF-CARE Patient Instructions: Acute Wound Care (ED) Additional Instructions: We removed 3 surendra from her scalp today. The wound looks good, no signs of infection. Continue to monitor for signs of infection such as increased redness or swelling, fevers. Follow-up see her primary care provider as scheduled. Continue with physical therapy. Return to the emergency department for any other concerns or worsening symptoms. YELENA BARRETT FI[employer] II FARMWORKER-BC Apr 18, 2018 12:24
[2018-04-18 12:32] VITALS: BP 110/78
== END 2018-04-18 12:44 | disposition home or self-care (01) ==
LOC: ER 12:18
DX: S01.01XD Laceration without foreign body of scalp, subsequent encounter (principal)
CPT/HCPCS: 99281